=== PATIENT | male | born 1960 | race Two or more races ===

== ENCOUNTER → 2016-06-23 | Outpatient (CLI) | payer OTHER ==
[~2016-06-23] MED LIST: ASPI81CH43 PO; ATOR10TA PO; ATOR20TA50 PO; LISI-275 PO; MET25T PO
[2016-06-23 09:47] LABS: Urine Bilirubin Negative (Negative); Urine Blood Negative /uL (Negative); Urine Color Yellow (Yellow); Urine Glucose Normal (Normal); Urine Ketone Negative (Negative); Urine Nitrite Negative (Negative); Urine RBC <1 /hpf (0 - 3); Urine Urobilinogen Normal (Negative)
[2016-06-23 10:12] LABS: Albumin 3.9 g/dL (3.4-5.0); BUN/Creatinine Ratio 21.3; Bilirubin, Total 0.6 mg/dL (0.2-1.0); Calcium 8.8 mg/dL (8.5-10.1); Total Protein 7.3 g/dL (6.4-8.2)
[2016-06-23 10:41] LABS: Basophils # (auto) 0.1 uL; Basophils % (auto) 0.8 % (0.0-2.0); Eosinophils # (auto) 0.4 uL; Eosinophils % (auto) 5.7 % (0.0-7.0); Hematocrit 45.8 % (41.0-53.0); Hemoglobin 14.7 g/dL (13.5-17.5); Lymphocytes # (auto) 2.1 uL; Lymphocytes % (auto) 30.7 % (10.0-50.0); Mean Corpuscular Hemoglobin 30.7 pg (28.0-32.0); Mean Corpuscular Hgb Conc. 32.1 g/dL (32.0-36.0); Mean Corpuscular Volume 95.7 fL (80.0-100.0); Mean Platelet Volume 9.8 fL (7.4-10.4); Monocytes # (auto) 0.7 uL; Monocytes % (auto) 10.5 % (0.0-12.0); Neutrophils # (auto) 3.7 uL; Neutrophils % (auto) 52.3 % (37.0-80.0); Platelet Count (auto) 188 10^3/uL (140-450); Red Cell Distribution Width 11.5 % (11.6-16.0); SUSPECT VIEW TRANSMISSION
== END | disposition home or self-care (01) ==
LOC: LAB 07:53
DX: Z12.5 Encounter for screening for malignant neoplasm of prostate (principal); E11.40 Type 2 diabetes mellitus with diabetic neuropathy, unspecified; D64.9 Anemia, unspecified
CPT/HCPCS: 36415; 80053; 80061; 81001; 82043; 82270; 83036; 84153; 84443; 85025

== ENCOUNTER → 2016-09-19 | Outpatient (CLI) | payer OTHER ==
[2016-09-19 09:13] LABS: Urine RBC None Seen /hpf (0 - 3)
[2016-09-19 09:23] LABS: Basophils # (auto) 0 uL; Basophils % (auto) 0.4 % (0.0-2.0); Eosinophils # (auto) 0.1 uL; Eosinophils % (auto) 1.9 % (0.0-7.0); Hematocrit 39.8 % (41.0-53.0); Hemoglobin 13.1 g/dL (13.5-17.5); Lymphocytes # (auto) 1.9 uL; Lymphocytes % (auto) 24.5 % (10.0-50.0); Mean Corpuscular Hemoglobin 31.2 pg (28.0-32.0); Mean Corpuscular Volume 94.6 fL (80.0-100.0); Mean Platelet Volume 9.3 fL (7.4-10.4); Monocytes # (auto) 0.6 uL; Monocytes % (auto) 8.3 % (0.0-12.0); Neutrophils % (auto) 64.9 % (37.0-80.0); Platelet Count (auto) 193 10^3/uL (140-450); Red Cell Distribution Width 12.2 % (11.6-16.0); White Blood Cell 7.7 10^3/uL (4.4-10.8)
[2016-09-19 09:50] LABS: Urine Bilirubin Negative (Negative); Urine Blood Negative /uL (Negative); Urine Color Yellow (Yellow); Urine Glucose Normal (Normal); Urine Ketone Negative (Negative); Urine Mucus FEW (None Seen); Urine Nitrite Negative (Negative); Urine Urobilinogen Normal (Negative); Urine pH 5.5 (5.0-8.0)
[2016-09-19 09:53] LABS: Albumin 3.9 g/dL (3.4-5.0); BUN/Creatinine Ratio 21.4; Bilirubin, Total 0.6 mg/dL (0.2-1.0); Calcium 8.6 mg/dL (8.5-10.1); Potassium 3.7 mmol/L (3.5-5.1); Total Protein 7.2 g/dL (6.4-8.2)
== END | disposition home or self-care (01) ==
LOC: LAB 08:35
DX: E11.40 Type 2 diabetes mellitus with diabetic neuropathy, unspecified (principal)
CPT/HCPCS: 36415; 80053; 80061; 81001; 82043; 83036; 84443; 85025

== ENCOUNTER → 2016-11-29 | Outpatient (CLI) | payer OTHER ==
[2016-11-29 07:16] LABS: Basophils # (auto) 0 uL; Basophils % (auto) 0.5 % (0.0-2.0); CONDITION Y; Eosinophils # (auto) 0.2 uL; Eosinophils % (auto) 3.3 % (0.0-7.0); Hematocrit 40.6 % (41.0-53.0); Hemoglobin 13.7 g/dL (13.5-17.5); Lymphocytes # (auto) 2.2 uL; Lymphocytes % (auto) 33.9 % (10.0-50.0); Mean Corpuscular Hgb Conc. 33.7 g/dL (32.0-36.0); Mean Corpuscular Volume 95.2 fL (80.0-100.0); Mean Platelet Volume 9.4 fL (7.4-10.4); Monocytes # (auto) 0.6 uL; Monocytes % (auto) 9.3 % (0.0-12.0); Neutrophils # (auto) 3.4 uL; Platelet Count (auto) 213 10^3/uL (140-450); White Blood Cell 6.4 10^3/uL (4.4-10.8)
[2016-11-29 07:42] LABS: Albumin 3.6 g/dL (3.4-5.0); Bilirubin, Total 0.5 mg/dL (0.2-1.0); Calcium 8.6 mg/dL (8.5-10.1); Potassium 3.6 mmol/L (3.5-5.1); Total Protein 6.8 g/dL (6.4-8.2)
== END | disposition home or self-care (01) ==
LOC: LAB 06:53
PROVIDERS: ATTEND Family Medicine
DX: E11.40 Type 2 diabetes mellitus with diabetic neuropathy, unspecified (principal); D64.9 Anemia, unspecified; E78.5 Hyperlipidemia, unspecified
CPT/HCPCS: 36415; 80053; 80061; 82043; 82306; 82607; 83036; 84153; 84443; 85025

== ENCOUNTER 2024-08-19 09:50 | Inpatient (IN) | payer MEDICARE, MEDICAID ==
[~2024-08-19] VITALS: Ht 177.8 cm; Wt 88.3 kg
[~2024-08-19 09:50] MED LIST changes: +ATOR40TA52 PO; +EZET-10 PO; +INSU100I52 SC; +ONDA-188 PO; +SODI650T PO
--- NOTE | 2024-08-19 10:25 | ED.PDOC ---
History of Present Illness HPI Comments 64-year-old male came to the ER stating that he has been having chest pain shortness a breath for the past few days. Chest pain has been few days but shortness a breath has been for one week. No radiation of the chest pain. He does have bilateral lower extremity swelling wears a right boot for a wound on the right foot. History of having stents defibrillator aortic valve hypertension. Denies abdominal pain nausea vomiting. Chief Complaint: Lower Extremity Time Seen by MD: 10:03 Primary Care Provider: UNK Reviewed Notes: Nurses Notes, Medications, Allergies Allergies: Coded Allergies: NO KNOWN ALLERGIES (Unverified , 12/19/13) Home Meds Active Scripts Lisinopril (Lisinopril) 5 Mg Tab, 2.5 MG PO DAILY, #30 TAB Prov:SOURAV BENITEZ MD 04/27/16 Metoprolol Tartrate (Lopressor) 25 Mg Tb, 12.5 MG PO BID, #60 Prov:SOURAV BENITEZ MD 04/27/16 Aspirin (Asa) 81 Mg Ch, 81 MG PO DAILY, #30 Prov:SOURAV BENITEZ MD 04/27/16 Atorvastatin Calcium (ATORVASTATIN CALCIUM) 20 Mg Tab, 20 MG PO HS, #30 TAB Prov:SOURAV BENITEZ MD 04/27/16 Reported Medications Atorvastatin Calcium (Lipitor) 10 Mg Tab, PO HS, TAB Increase to 20mg q HS 04/29/16 Information Source: Patient Mode of Arrival: Ambulatory Severity: Moderate Timing: Days Duration: Since onset Past Medical History PAST MEDICAL HISTORY: CAD, DM, HTN Surgical History: Denies all surgeries Family History Family History: Unknown Social History Smoker: Non-Smoker Lives In: Home Constitutional: denies: chills, diaphoresis, fatigue, fever, malaise, sweats, weakness, others EENTM: denies: blurred vision, double vision, ear bleeding, ear discharge, ear drainage, ear pain, ear ringing, eye pain, eye redness, hearing loss, mouth pain, mouth swelling, nasal discharge, nose bleeding, nose congestion, nose pain, photophobia, tearing, throat pain, throat swelling, voice changes, others Respiratory: reports: shortness of breath; denies: cough, hemoptysis, orthopnea, SOB at rest, SOB with excertion, stridor, wheezing, others Cardiovascular: reports: chest pain; denies: dizzy spells, diaphoresis, Dyspnea on exertion, edema, irregular heart beat, left arm pain, lightheadedness, palpit ations, PND, syncope, others Gastrointestinal: denies: abdomen distended, abdominal pain, blood streaked b owels, constipated, diarrhea, dysphagia, difficulty swallowing, hematemesis, melena, nausea, poor appetite, poor fluid intake, rectal bleeding, rectal pain, vomiting, others Genitourinary: denies: burning, dysuria, flank pain, frequency, hematuria, incontinence, penile discharge, penile sore, pain, testicle pain, testicle swelling, urgency, others Neurological: denies: dizziness, fainting, headache, left sided numbness, left sided weakness, numbness, paresthesia, pre-existing deficit, right sided numbness, right sided weakness, seizure, speech problems, tingling, tremors, weakness, others Musculoskeletal: reports: joint swelling (Bilateral lower extremity); denies: back pain, gout, joint pain, muscle pain, muscle stiffness, neck pain, others Integumetry: denies: bruises, change in color, change in hair/nails, dryness, laceration, lesions, lumps, rash, wounds, others Allergic/Immunocompromised: denies: Difficulty Healing, Frequent Infections, Hives, Itching, others Hematologic/Lymphatic: denies: anemia, blood clots, easy bleeding, easy bruising, swollen glands, others Endocrine: denies: excessive hunger, excessive sweating, excessive thirst, excessive urination, flushing, intolerance to cold, intolerance to heat, u nexplained weight gain, unexplained weight loss, others Psychiatric: denies: anxiety, bipolar disorder, depression, hopeless, panic disorder, schizophrenia, sleepless, suicidal, others Physical Exam General Appearance: Moderate Distress HEENT: Normal ENT Inspection, Pharynx Normal, TMs Normal Neck: Full Range of Motion, Non-Tender, Normal, Normal Inspection Respiratory: Lungs Clear Cardiovascular: No Edema, No JVD, No Murmur, No Gallop, Normal Peripheral Pulses, Regular Rate/Rhythm Breast Exam: Deferred Gastrointestinal: No Organomegaly, Non Tender, No Pulsatile Mass, Normal Bowel Sounds, Soft Genitalia: Deferred Pelvic: Deferred Rectal: Deferred Extremities: Swelling (Bilateral lower extremity) Musculoskeletal : Apperance: Normal Neurologic: Alert Cerebellar Function: NOT DONE Reflexes: NOT DONE Skin: Dry, Normal Color, Warm Peripheral Pulses: 3+ Radial (R), 3+ Radial (L) Lymphatic: No Adenopathy Was a procedure done? Was a procedure done?: No Differential Dx Considerations may include: Anemia Electrolyte imbalance X-Ray, Labs, Meds, VS Vital Signs Date Time Temp Pulse Resp B/P (MAP) Pulse Ox O2 Delivery O2 Flow Rate FiO2 08/19/24 10:42 97.5 80 20 120/69 (86) 99 97.5 08/19/24 10:42 80 20 99 Room Air* 0 21 08/19/24 10:00 98.9 80 20 129/51 (77) 100 98.9 Lab Test 08/19/24 10:54 Range/Units White Blood Count 6.7 4.4-10.8 10^3/uL Red Blood Count 3.78 L 4.5-5.90 10^6/uL Hemoglobin 12.7 L 13.5-17.5 g/dL Hematocrit 39.1 L 41.0-53.0 % Mean Corpuscular Volume 103.6 H 80.0-100.0 fL Mean Corpuscular Hemoglobin 33.6 H 28.0-32.0 pg Mean Corpuscular Hemoglobin Concent 32.5 32.0-36.0 g/dL Red Cell Distribution Width 15.4 H 11.8-14.3 % Platelet Count 118 L 140-450 10^3/uL Mean Platelet Volume 10.6 6.9-10.8 fL Neutrophils (%) (Auto) 74.6 37.0-80.0 % Lymphocytes (%) (Auto) 8.2 L 10.0-50.0 % Monocytes (%) (Auto) 12.0 0.0-12.0 % Eosinophils (%) (Auto) 4.3 0.0-7.0 % Basophils (%) (Auto) 0.9 0.0-2.0 % Neutrophils # (Auto) 5.0 1.6-8.6 10 ^3/uL Lymphocytes # (Auto) 0.6 0.4-5.4 10 ^3/uL Monocytes # (Auto) 0.8 0-1.3 10 ^3/uL Eosinophils # (Auto) 0.3 0-0.8 10 ^3/uL Basophils # (Auto) 0.1 0-0.2 10 ^3/uL Nucleated Red Blood Cells 0.1 % Sodium Level 137 136-145 mmol/L Potassium Level 4.7 3.5-5.1 mmol/L Chloride Level 103 98-107 mmol/L Carbon Dioxide Level 26 20-31 mmol/L Anion Gap 8 5-15 Blood Urea Nitrogen 80 *H 9-23 mg/dL Creatinine 2.75 H 0.700-1.30 mg/dL Glomerular Filtration Rate Calc 25 >90 mL/min BUN/Creatinine Ratio 29.1 H 10.0-20.0 Serum Glucose 166 H 74-106 mg/dL Calcium Level 8.9 8.7-10.4 mg/dL Troponin I High Sensitivity 84 *H </=54 ng/L B-Type Natriuretic Peptide 3063.83 0-100 pg/mL Patient alert. Complaining of chest pain shortness a breath. On examination he does have bilateral lower extremity swelling. Has a right boot. Vitals stable. Continues to have chest pain. Was given aspirin. Was given nitro. Was given Lasix. Explained to the patient. EKG reviewed does not show any acute changes. Reviewed his previous visit. Explained to the patient. Continue cardiac monitoring. Time of 1ST Reevaluation: 10:23 Reevaluation 1ST: Unchanged Patient Education/Counseling: Diagnosis, Treatment, Prognosis Family Education/Counseling: No Family Present Departure 1 Departure Time of Disposition: 10:24 Impression: Primary Impression: Chest pain of unknown etiology Additional Impressions: Hypertension Qualified Codes: I10 - Essential (primary) hypertension CHF (congestive heart failure) Qualified Codes: I50.43 - Acute on chronic combined systolic (congestive) and diastolic (congestive) heart failure Demand ischemia Chronic kidney failure Qualified Codes: N18.9 - Chronic kidney disease, unspecified Disposition: ADMITTED INPATIENT Admit to: Med Surg Condition: Guarded Critical Care Note Critical Care Time?: Yes (90 min-critical care time only) Critical care comment: Monitoring chest pain shortness a breath risk factors Stability Stability form required: No Heart Score Heart Score: Heart Score Response (Comments) Value History Slightly Suspicious 0 EKG Normal 0 Age >65 2 Risk Factors >3 or Hx ASHD 2 Troponin Normal limit 0 Total 4 CAROLINA STOCK MD Aug 19, 2024 10:25
--- NOTE | 2024-08-19 10:41 | DVH ---
CHEST RADIOGRAPH Indication: sob Technique: Single frontal view of the chest was obtained COMPARISON: None FINDINGS: Lines and Tubes: Left chest AICD Lungs: Clear Pleura: No effusion. No pneumothorax. Cardiomediastinal contours: Cardiomegaly Bones: Unremarkable IMPRESSION: Cardiomegaly
[2024-08-19 10:42] VITALS: PULSE 80; RESP 20; O2SAT 99
[2024-08-19 11:13] LABS: Basophils # (auto) 0.1 10 ^3/uL (0-0.2); Basophils % (auto) 0.9 % (0.0-2.0); Eosinophils # (auto) 0.3 10 ^3/uL (0-0.8); Eosinophils % (auto) 4.3 % (0.0-7.0); Hematocrit 39.1 % (41.0-53.0); Hemoglobin 12.7 g/dL (13.5-17.5); Lymphocytes # (auto) 0.6 10 ^3/uL (0.4-5.4); Lymphocytes % (auto) 8.2 % (10.0-50.0); Mean Corpuscular Hemoglobin 33.6 pg (28.0-32.0); Mean Corpuscular Hgb Conc. 32.5 g/dL (32.0-36.0); Mean Corpuscular Volume 103.6 fL (80.0-100.0); Monocytes # (auto) 0.8 10 ^3/uL (0-1.3); Neutrophils % (auto) 74.6 % (37.0-80.0); Nucleated Red Blood Cells % 0.1 %; Platelet Count (auto) 118 10^3/uL (140-450); Red Blood Cells 3.78 10^6/uL (4.5-5.90); Red Cell Distribution Width 15.4 % (11.8-14.3); White Blood Cell 6.7 10^3/uL (4.4-10.8)
[2024-08-19 11:23] LABS: Chloride 103 mmol/L (98-107); Potassium 4.7 mmol/L (3.5-5.1); Sodium 137 mmol/L (136-145)
[2024-08-19 11:24] LABS: Anion Gap 8 (5-15); Calcium 8.9 mg/dL (8.7-10.4); Carbon Dioxide 26 mmol/L (20-31)
[2024-08-19 11:29] LABS: BUN/Creatinine Ratio 29.1 (10.0-20.0)
[2024-08-19 11:30] LABS: Glucose 166 mg/dL (74-106)
[2024-08-19 11:31] LABS: Blood Urea Nitrogen 80 mg/dL (9-23)
[2024-08-19] MEDS: ENOXAPARIN SOD 100 MG/1 ML SYRINGE SC ONE (12:01)
--- NOTE | 2024-08-19 13:08 | DVHHP2 ---
History of Present Illness Reason for Visit: Chest pain and shortness of the breath History of Present Illness 64-year-old male past medical history heart stent times do defibrillator placement eight over found hypertension CAD diabetes CHF COPD insulin pump chief complaint patient states he has been having chest pain and shortness of the breath has been for a week. He does state he had some edema to his lower extremity that is new. Patient states he has been taking Bumex but he knows that his swelling has not improved with the Bumex that was provided eat despite the increase in the dose. He states he was seen in his chim[facility] Dr. robles as scheduled. He states he has been taking his medications as scheduled. When evaluating patient's labs and imaging from the ED looks like Lovenox was given hemoglobin was 12.7 39.1 platelet count was 118, creatinine is 2.75 and 80 glucose was 161 troponin was positive x2 BNP was 3063.83, chest x-ray shows cardiomegaly. We will admit and ask for Cardiology consult Past Medical History See HPI above Past Surgical History See HPI above Family History Reviewed, non-contributory to the management of this case. Past Social History The patient lives at home, denies smoking, alcohol or illicit drugs abuse. Review of Systems Constitutional: No: Fever, Chills, Sweats, Weakness, Malaise, Other Eyes: No: Pain, Vision change, Conjunctivae inflammation, Eyelid inflammation, Other, Redness ENT: No: Ear pain, Ear discharge, Nose pain, Nose discharge, Nose congestion, Mouth pain, Mouth swelling, Throat pain, Throat swelling, Other Respiratory: Shortness of breath, SOB with excertion; No: Cough, Dry, Wheezing, Hemoptysis, Pleuritic Pain, Sputum, Wheezing, Other Cardiovascular: Chest Pain; No: Palpitations, Orthopnea, Paroxysmal Noc. Dyspnea, Edema, Lt Headedness, Other Gastrointestinal: No: Nausea, Vomiting, Abdominal Pain, Diarrhea, Constipation, Melena, Hematochezia, Other Genitourinary: No Dysuria, No Frequency, No Incontinence, No Hematuria, No Retention, No Other Musculoskeletal: No: other, neck pain, shoulder pain, arm pain, back pain, hand pain, leg pain, foot pain Skin: No: Rash, Lesions, Jaundice, Bruising, Other Neurological: No: Weakness, Numbness, Incoordination, Change in speech, Confusion, Seizures, Other Allergies: Coded Allergies: NO KNOWN ALLERGIES (Unverified , 12/19/13) Exam Vital Signs Vital Signs Date Time Temp Pulse Resp B/P (MAP) Pulse Ox O2 Delivery O2 Flow Rate FiO2 08/19/24 10:42 97.5 80 20 120/69 (86) 99 97.5 08/19/24 10:42 Room Air* 0 21 General Appearance: Alert, Oriented X3, Cooperative, mild distress HEENT: Atraumatic, PERRLA, EOMI, Mucous membr. moist/pink Respiratory: Other (Rales throughout) Cardiovascular: Regular rate, Normal S1, Normal S2, No murmurs Abdominal: Normal bowel sounds, Soft, No tenderness, No hepatospenomegaly, No masses Extremities: No clubbing, No cyanosis, No edema, Normal pulses, No tenderness/swelling Skin: No rashes, No breakdown, No significant lesion Neuro: Other (Wheelchair due to weakness) Psych/Mental Status: Mental status NL, Mood NL Labs/Xrays Chest x-ray shows cardiomegaly I reviewed labs, imaging CT scan abdomen pelvis, EKG and all diagnostic studies on this patient from ED records and the medical chart Labs Test 08/19/24 10:54 Range/Units White Blood Count 6.7 4.4-10.8 10^3/uL Red Blood Count 3.78 L 4.5-5.90 10^6/uL Hemoglobin 12.7 L 13.5-17.5 g/dL Hematocrit 39.1 L 41.0-53.0 % Mean Corpuscular Volume 103.6 H 80.0-100.0 fL Mean Corpuscular Hemoglobin 33.6 H 28.0-32.0 pg Mean Corpuscular Hemoglobin Concent 32.5 32.0-36.0 g/dL Red Cell Distribution Width 15.4 H 11.8-14.3 % Platelet Count 118 L 140-450 10^3/uL Mean Platelet Volume 10.6 6.9-10.8 fL Neutrophils (%) (Auto) 74.6 37.0-80.0 % Lymphocytes (%) (Auto) 8.2 L 10.0-50.0 % Monocytes (%) (Auto) 12.0 0.0-12.0 % Eosinophils (%) (Auto) 4.3 0.0-7.0 % Basophils (%) (Auto) 0.9 0.0-2.0 % Neutrophils # (Auto) 5.0 1.6-8.6 10 ^3/uL Lymphocytes # (Auto) 0.6 0.4-5.4 10 ^3/uL Monocytes # (Auto) 0.8 0-1.3 10 ^3/uL Eosinophils # (Auto) 0.3 0-0.8 10 ^3/uL Basophils # (Auto) 0.1 0-0.2 10 ^3/uL Nucleated Red Blood Cells 0.1 % Sodium Level 137 136-145 mmol/L Potassium Level 4.7 3.5-5.1 mmol/L Chloride Level 103 98-107 mmol/L Carbon Dioxide Level 26 20-31 mmol/L Anion Gap 8 5-15 Blood Urea Nitrogen 80 *H 9-23 mg/dL Creatinine 2.75 H 0.700-1.30 mg/dL Glomerular Filtration Rate Calc 25 >90 mL/min BUN/Creatinine Ratio 29.1 H 10.0-20.0 Serum Glucose 166 H 74-106 mg/dL Calcium Level 8.9 8.7-10.4 mg/dL Troponin I High Sensitivity 84 *H </=54 ng/L B-Type Natriuretic Peptide 3063.83 0-100 pg/mL Assessment/Plan Assessment/Plan acute chest pain r/o nstemi ekg no stemi ordered Cards consult pending eval and recs ordered lovenox ordered metoprolol asa atorvastatin ordered Echocardiogram follow-up results last echo completed 2015 ef 30% ordered morphine as needed for pain, ordered nitro prn acute on chronic diastolic systolic heart failure bnp elevated ordered strict i/o's ordered bumex ordered echo fu results acute on chronic elevation in trop likely ak from heart failure strict i/o's ordered urine sodium and crea to check fena acute elevation in crea likely from heart failure fluid overload ordered bumex strict i/o' renal consult dr tinoco if worsening pt renal doctor acute thrombocytopenia monitor while getting Lovenox chronic cardiomegaly found on cxr cards consult chronic problems uncontrolled type 2 dm ISS and hemoglobin a1c htn cad defib heart stents x2 fen/ppx diet hl scd lovenox no gi ppx since no hx of gerds or gi bleed plan admit to tele cards consult fu recs Plan discussed with: Patient Date of Service: Aug 19, 2024 Billing Provider: SERGIO LIRIANO DNP Common Visit Codes: [id number] INP/OBS CARE (HIGH) SERGIO LIRIANO DNP Aug 19, 2024 13:08
[2024-08-19 13:29] LABS: Urine Bacteria None Seen /hpf (None Seen)
[2024-08-19 13:39] LABS: Urine Blood Negative /uL (Negative); Urine Clarity Clear (Clear); Urine Color Light-Yellow (Yellow); Urine Protein, UAD 1+ (Negative); Urine Specific Gravity 1.017 (1.001-1.035); Urine Squamous Epithelial Cell None Seen /hpf (<5); Urine Urobilinogen 2 mg/dL (Negative); Urine WBC 3 /HPF (0-3); Urine pH 6.5 (5.0-9.0)
[2024-08-19] MEDS ORDERED: NITROGLYCERIN 0.4 MG SL TAB SL PRN (14:45)
[2024-08-19] MEDS ORDERED: MORPHINE SULFATE INJ 2 MG/ml SYRG IV PRN (14:45)
--- NOTE | 2024-08-19 16:54 | DVHINCON2 ---
Date of service: Aug 19, 2024 History of Present Illness HPI Patient is a 64-year-old gentleman who presented to the hospital with 1 week of worsening shortness of breath. He did have some left shoulder pain for few days also. It is of note that the patient is known to have degenerative disc disease of the neck for which is referred to orthopedic surgery for its management. Patient is known to have systolic heart failure. Patient mentions that his weight has increased around 20 lb in the past few weeks. Cardiology is involved for cardiac aspects of care. Patient is known to our practice from before. Does have history of systolic heart failure and also history of valvular heart disease and status post TAVR in 2022. Does also have CKD for which follows with Nephrology. Home Meds Active Scripts Lisinopril (Lisinopril) 5 Mg Tab, 2.5 MG PO DAILY, #30 TAB Prov:SOURAV BENITEZ MD 04/27/16 Metoprolol Tartrate (Lopressor) 25 Mg Tb, 12.5 MG PO BID, #60 Prov:SOURAV BENITEZ MD 04/27/16 Aspirin (Asa) 81 Mg Ch, 81 MG PO DAILY, #30 Prov:SOURAV BENITEZ MD 04/27/16 Atorvastatin Calcium (ATORVASTATIN CALCIUM) 20 Mg Tab, 20 MG PO HS, #30 TAB Prov:SOURAV BENITEZ MD 04/27/16 Reported Medications Atorvastatin Calcium (Lipitor) 10 Mg Tab, PO HS, TAB Increase to 20mg q HS 04/29/16 Past Medical History Others Past medical history includes coronary artery disease, status post PCI, systolic heart failure, status post ICD ([employer]) implantation, valvular heart disease, status post TAVR, [id number] TR, diabetes mellitus, pulmonary hypertension (type 2), degenerative disc disease, hypertension, hyperlipidemia, CKD, DJD, abnormal LFT and history of carpal tunnel surgery. Family History: No pertinent Hx Patient Family History: Cancer G8 MOTHER Family history: Diabetes mellitus G8 MOTHER Stroke G8 MOTHER Smoker: No Hx (Negative) Alocohol: None Review of Systems Constitutional: Weakness Ears, Nose, & Throat: No symptom reported Eyes: No symptom reported Pulmonary/Respiratory: Dyspnea, Pleuritic Chest Pain Cardiovascular: Orthopnea, Paroxysmal Noc. Dyspnea Gastrointestinal: Nausea All Other Systems Fourteen point review of system was performed. Relevant findings as per above and as per HPI. Otherwise negative H&P Exam Vital Signs Vital Signs Date Time Temp Pulse Resp B/P (MAP) Pulse Ox O2 Delivery O2 Flow Rate FiO2 08/19/24 15:45 97.0 72 18 131/64 (86) 97 97.0 08/19/24 10:42 Room Air* 0 21 General Appeara: Well developed, Mild distress Head Exam: Normal inspection Eye Exam: bilateral eye PERRL Mouth: Normal Inspection Pulmonary/Respiratory: Rales Cardiovascular/Chest: Normal inspection, Edema, Regular rate, Systolic murmur Peripheral Pulses: 2+ carotid (R), 2+ carotid (L), 2+ femoral (R), 2+ femoral (L) Abdominal Exam: Normal bowel sounds, Soft, Other (Distended.) Neuro/Mental St: Alert, Oriented Appearance: Appropriate appearance Eye contact/ Speech: Cooperative Labs/Xrays Labs Test 08/19/24 10:54 08/19/24 10:40 Range/Units White Blood Count 6.7 4.4-10.8 10^3/uL Red Blood Count 3.78 L 4.5-5.90 10^6/uL Hemoglobin 12.7 L 13.5-17.5 g/dL Hematocrit 39.1 L 41.0-53.0 % Mean Corpuscular Volume 103.6 H 80.0-100.0 fL Mean Corpuscular Hemoglobin 33.6 H 28.0-32.0 pg Mean Corpuscular Hemoglobin Concent 32.5 32.0-36.0 g/dL Red Cell Distribution Width 15.4 H 11.8-14.3 % Platelet Count 118 L 140-450 10^3/uL Mean Platelet Volume 10.6 6.9-10.8 fL Neutrophils (%) (Auto) 74.6 37.0-80.0 % Lymphocytes (%) (Auto) 8.2 L 10.0-50.0 % Monocytes (%) (Auto) 12.0 0.0-12.0 % Eosinophils (%) (Auto) 4.3 0.0-7.0 % Basophils (%) (Auto) 0.9 0.0-2.0 % Neutrophils # (Auto) 5.0 1.6-8.6 10 ^3/uL Lymphocytes # (Auto) 0.6 0.4-5.4 10 ^3/uL Monocytes # (Auto) 0.8 0-1.3 10 ^3/uL Eosinophils # (Auto) 0.3 0-0.8 10 ^3/uL Basophils # (Auto) 0.1 0-0.2 10 ^3/uL Nucleated Red Blood Cells 0.1 % Sodium Level 137 136-145 mmol/L Potassium Level 4.7 3.5-5.1 mmol/L Chloride Level 103 98-107 mmol/L Carbon Dioxide Level 26 20-31 mmol/L Anion Gap 8 5-15 Blood Urea Nitrogen 80 *H 9-23 mg/dL Creatinine 2.75 H 0.700-1.30 mg/dL Glomerular Filtration Rate Calc 25 >90 mL/min BUN/Creatinine Ratio 29.1 H 10.0-20.0 Serum Glucose 166 H 74-106 mg/dL Calcium Level 8.9 8.7-10.4 mg/dL Magnesium Level 3.4 H 1.6-2.6 mg/dL Troponin I High Sensitivity 84 *H </=54 ng/L B-Type Natriuretic Peptide 3063.83 0-100 pg/mL Thyroid Stimulating Hormone (TSH) 5.49 H 0.55-4.78 uIU/mL Urine Color Light-yellow Yellow Urine Clarity Clear Clear Urine pH 6.5 5.0-9.0 Urine Specific [place] 1.017 1.001-1.035 Urine Protein 1+ H Negative Urine Ketones Negative Negative Urine Blood Negative Negative /uL Urine Nitrite 2+ H Negative Urine Bilirubin Negative Negative Urine Urobilinogen 2 H Negative mg/dL Urine Leukocyte Esterase Trace Negative /uL Urine RBC 2 0 - 3 /hpf Urine Microscopic WBC 3 0-3 /HPF Urine Squamous Epithelial Cells None seen <5 /hpf Urine Bacteria None seen None Seen /hpf Urine Glucose 4+ H Normal mg/dL Assessment/Plan Plan Patient is a 64-year-old gentleman who presented to the hospital with 1 week of worsening shortness of breath. He did have some left shoulder pain for few days also. It is of note that the patient is known to have degenerative disc disease of the neck for which is referred to orthopedic surgery for its management. Patient is known to have systolic heart failure. Patient mentions that his weight has increased around 20 lb in the past few weeks. Cardiology is involved for cardiac aspects of care. Patient is known to our practice from before. Does have history of systolic heart failure and also history of valvular heart disease and status post TAVR in 2022. Does also have CKD for which follows with Nephrology. Does go to vascular. Mentions that he has an ulcer in the right heel. Positive JVD. Mucosa is pink and wet. No carotid bruit. Lung examination reveals crackles in the lower lungs. Not using accessory muscles of breathing. Cardiac: Regular, no thrill. Systolic murmur 3/6 in the apex is heard. History gallop is heard. Abdomen is distended. Bowel sound is positive. There is no tenderness. Questionable hepatomegaly is positive. Extremities reveal 3+ edema bilaterally. Could not feel pulses bilaterally. Past medical history includes coronary artery disease, status post PCI, systolic heart failure, status post ICD ([employer]) implantation, valvular heart disease, status post TAVR, [id number] TR, diabetes mellitus, pulmonary hypertension (type 2), degenerative disc disease, hypertension, hyperlipidemia, CKD, DJD, abnormal LFT and history of carpal tunnel surgery. Left heart catheterization of October 25, 2022 (performed in [facility]) revealed patent stent in LAD/diagonal/LCX/RCA. OM1 was a small to medium-sized vessel with 90% lesion. RPDA was a small vessel with 60% lesion. To be managed medically Echocardiogram of July 18, 2024 (performed in the office) revealed moderate 4 chamber dilatation, LVEF of less than 20%, increased EDP, bioprosthetic valve in aortic position working properly, [id number] mitral regurgitation, odpwuuca-[id number]-hvertq tricuspid regurgitation and right ventricular systolic pressure of 48 mm Hg Hemoglobin: 12.7 Platelet: 118 Creatinine: 2.75 Potassium: 4.7 TSH: 5.49 Troponin (high sensitive): 84 BNP: 3063.83 Chest x-ray revealed: IMPRESSION: Cardiomegaly Tele reveals sinus rhythm Patient is a 64-year-old gentleman with known history of systolic heart failure, valvular heart disease, type 2 pulmonary hypertension who presented with wo rsening shortness of breath and gaining weight. Presentation is in favor of acute on chronic systolic heart failure. Did complain of atypical left shoulder/neck pain. Is known to have degenerative disc disease in the neck. Acute coronary syndrome is less likely. Most likely, mild increase in troponin reflects demand physiology in the patient with systolic heart failure. Acute on chronic systolic heart failure Valvular heart disease Status post TAVR Dyavgyox-vf-htulxl tricuspid regurgitation Pulmonary hypertension, type 2 CKD Hypertension Hyperlipidemia Diabetes mellitus Status post ICD ([employer]) implantation PAD Cardiac suggestion for management: Manage on telemetry IV diuresis (Bumex) Follow-up electrolytes and kidney function tests and correct abnormalities. Keep potassium above 4 and magnesium above 2 Request for D-dimer Serial troponin Continue aspirin at this Prophylactic Lovenox at this point Request for echocardiogram Request for arterial and venous Doppler of lower extremities Nephrology evaluation is suggested Further evaluation and management depends on the above and clinical course Thank you for consultation A total of 75 minutes was spent reviewing the patient record, examining the patient, making a diagnostic and therapeutic plan, discussing this plan with medical personnel, following up on diagnostic studies and following the patient for clinical stability excluding any and all procedures. At least 50% of this time was spent in direct, mjme-tt-[id number] contact. Thank you for allowing me to participate in this patient's care. Further recommendations will depend on patient's clinical course. Please do not hesitate to contact me if you have any questions or concerns. This medical document was created using electronic medical record system with [employer] computerized dictation system. Although this document has been carefully reviewed, there may still be some phonetic and typographical errors. These areas are purely typographical due to the imperfection of the software programs, and do not reflect any compromise in the patient's medical care. Plan discussed with: Patient, Other (nurse) GLADIS SAINI MD Aug 19, 2024 16:54
[2024-08-19] MEDS ORDERED: BUMETANIDE 1mg/4ml VIAL (0.25mg/ml) IV SCH (18:00)
[2024-08-19] MEDS: BUMETANIDE 2.5mg/10ml (0.25 mg/ml) INJ IV SCH (19:50)
[2024-08-19 20:00] VITALS: BP 140/71; PULSE 71; RESP 18; TEMP 97.9; O2SAT 98
--- NOTE | 2024-08-19 20:34 | DVH ---
Bilateral Lower Extremity Arterial Duplex Clinical History: Pain Comparison: None Technique: Duplex Doppler evaluation including color Doppler and spectral/pulsed waveform analysis of the lower extremity arteries was performed. Findings: RIGHT: Peak systolic velocities are less than 150 cm/sec. Dorsalis pedis is not visualized. The waveforms are triphasic with diastolic flow. LEFT: Peak systolic velocities are less than 150 cm/sec. Dorsalis pedis is not visualized. The waveforms are triphasic with diastolic flow. IMPRESSION: No hemodynamically significant stenosis based on peak systolic velocity criteria. Bilateral dorsalis pedis arteries are not visualized due to bandages. REFERENCE VALUES, [facility] ([facility]) vascular Imaging Lab Criteria: Peak systolic velocity ranges (in cm/sec) are as follows: <150 cm/s - <20 % stenosis 150-200 cm/s - 20-49% stenosis 200-300 cm/s - 50-75% stenosis >300 cm/s -> 75% stenosis
--- NOTE | 2024-08-19 20:34 | DVH ---
Bilateral lower extremity venous duplex Clinical History: MD TRIPP REQUEST Comparison: None Technique: Duplex Doppler evaluation of the deep venous systems of both lower extremities from the common femora l veins to the popliteal veins including color Doppler and spectral/pulsed waveform analysis was perf ormed. Findings: RIGHT SIDE: The common femoral vein demonstrates appropriate compressibility and waveform variability. There is compressibility/patency of the great saphenous vein at the proximal thigh. The femoral vein demonstrates appropriate compressibility and waveform variability. The deep femoral vein demonstrates appropriate compressibility and waveform variability. The popliteal vein demonstrates appropriate compressibility and waveform variability. There is normal compressibility at the tibioperoneal trunk. LEFT SIDE: The common femoral vein demonstrates appropriate compressibility and waveform variability. There is compressibility/patency of the great saphenous vein at the proximal thigh. The femoral vein demonstrates appropriate compressibility and waveform variability. The deep femoral vein demonstrates appropriate compressibility and waveform variability. The popliteal vein demonstrates appropriate compressibility and waveform variability. There is normal compressibility at the tibioperoneal trunk. Impression: No evidence of right or left femoropopliteal venous thrombosis.
[2024-08-19] MEDS ORDERED: BUMETANIDE 2.5mg/10ml (0.25 mg/ml) INJ IV ONE (22:00)
[2024-08-19] MEDS ORDERED: METOPROLOL TARTRATE 25 MG TAB PO SCH (22:00)
[2024-08-19 22:09] VITALS: PULSE 81; RESP 17; O2SAT 98
[2024-08-19 22:10] VITALS: BP 140/71; PULSE 81; RESP 17; TEMP 98; O2SAT 98
[2024-08-19] MEDS: ATORVASTATIN 20 MG TAB PO SCH (22:20)
[2024-08-19] MEDS ORDERED: METO5TAB5 PO (23:23)
[2024-08-19] MEDS ORDERED: ALLO100T PO (23:23)
[2024-08-19] MEDS ORDERED: SACU1TAB PO (23:23)
[2024-08-19] MEDS ORDERED: CARV6.2551 PO (23:23)
[2024-08-19] MEDS ORDERED: CALC0.25 PO (23:23)
[2024-08-19] MEDS ORDERED: FINE10TA PO (23:23)
[2024-08-19] MEDS ORDERED: BUME0.5T4 PO (23:23)
[2024-08-19] MEDS ORDERED: DAPA1TAB4 PO (23:23)
[2024-08-19] MEDS ORDERED: ESZO2TAB24 PO (23:26)
[2024-08-20] VITALS (8 sets, daily range): BP systolic 108–150; BP diastolic 64–79; PULSE 74–83; RESP 18–20; TEMP 97.4–98.5; O2SAT 94–100
[2024-08-20] MEDS: HYDROcodone-ACET 5/325MG TAB PO ONE (05:09)
[2024-08-20 06:20] LABS: Basophils # (auto) 0.1 10 ^3/uL (0-0.2); Eosinophils # (auto) 0.3 10 ^3/uL (0-0.8); Eosinophils % (auto) 3.6 % (0.0-7.0); Hemoglobin 12.2 g/dL (13.5-17.5); Lymphocytes # (auto) 0.6 10 ^3/uL (0.4-5.4); Monocytes # (auto) 0.9 10 ^3/uL (0-1.3); Nucleated Red Blood Cells % 0.1 %; Red Cell Distribution Width 14.9 % (11.8-14.3)
[2024-08-20 06:25] LABS: Lymphocytes % (auto) 9.2 % (10.0-50.0); Mean Corpuscular Hemoglobin 34.4 pg (28.0-32.0); Mean Corpuscular Hgb Conc. 33.1 g/dL (32.0-36.0); Monocytes % (auto) 12.6 % (0.0-12.0); Neutrophils # (auto) 5.2 10 ^3/uL (1.6-8.6); Neutrophils % (auto) 73.6 % (37.0-80.0); Platelet Count (auto) 113 10^3/uL (140-450); Red Blood Cells 3.56 10^6/uL (4.5-5.90)
[2024-08-20 06:45] LABS: Alanine Aminotransferase 32 U/L (7-40); Anion Gap 11 (5-15); BUN/Creatinine Ratio 31.5 (10.0-20.0); Calcium 9.3 mg/dL (8.7-10.4); Carbon Dioxide 22 mmol/L (20-31); Chloride 105 mmol/L (98-107); Sodium 138 mmol/L (136-145); Total Protein 7.2 g/dL (5.7-8.2)
[2024-08-20 06:46] LABS: Albumin 4.2 g/dL (3.2-4.8); Aspartate Aminotransferase 30 U/L (13-40)
[2024-08-20 06:53] LABS: Alkaline Phosphatase 178 U/L (46-116); Bilirubin, Total 1.3 mg/dL (0.2-1.0); Glucose 143 mg/dL (74-106)
[2024-08-20 06:55] LABS: Blood Urea Nitrogen 80 mg/dL (9-23)
[2024-08-20 07:10] LABS: Triglycerides 91 mg/dL (< 150)
[2024-08-20 07:11] LABS: LDL Cholesterol 66 mg/dL (< 100)
[2024-08-20 07:12] LABS: Cholesterol 152 mg/dL (< 200)
[2024-08-20 07:17] LABS: HDL Cholesterol 64 mg/dL (40-59)
--- NOTE | 2024-08-20 07:28 | DVHPN2 ---
Progress Note - Dictate Date Seen: Aug 20, 2024 Medical Necessity Reason Pt with a Central, PICC or Fol: No vital signs Vital Sign Date Time Temp Pulse Resp B/P (MAP) Pulse Ox O2 Delivery O2 Flow Rate FiO2 08/20/24 05:48 150/64 08/20/24 05:00 97.6 80 18 99 97.6 08/19/24 22:09 Room Air* 0 21 Total Intake and Output 08/19/24 08/19/24 08/20/24 15:00 23:00 07:00 Intake Total 400 ml Output Total 125 ml Balance 275 ml medications Current Medications Medications Dose Ordered Sig/Jesus Route Start Time Stop Time Status Last Admin Dose Admin Aspirin 81 mg DAILY PO 08/20/24 10:00 Atorvastatin Calcium 20 mg HS PO 08/19/24 22:00 08/19/24 22:20 20 MG Lisinopril 2.5 mg DAILY PO 08/20/24 10:00 Future Hold Metoprolol Tartrate 12.5 mg BID PO 08/19/24 22:00 Hold Enoxaparin Sodium 40 mg DAILY SC 08/20/24 10:00 Nitroglycerin 0.4 mg Q5MINP PRN SL 08/19/24 14:45 Morphine Sulfate 2 mg Q30M PRN IV 08/19/24 14:45 Bumetanide 2 mg BIDD IV 08/19/24 18:00 08/20/24 05:48 2 MG laboratory and microbiology Laboratory Tests 08/20/24 04:10 Test 08/20/24 04:10 Range/Units Serum Glucose 143 H 74-106 mg/dL Assessment/Plan Patient is a 64-year-old gentleman who presented to the hospital with 1 week of worsening shortness of breath. He did have some left shoulder pain for few days also. It is of note that the patient is known to have degenerative disc disease of the neck for which is referred to orthopedic surgery for its management. Patient is known to have systolic heart failure. Patient mentions that his weight has increased around 20 lb in the past few weeks. Cardiology is involved for cardiac aspects of care. Patient is known to our practice from before. Does have history of systolic heart failure and also history of valvular heart disease and status post TAVR in 2022. Does also have CKD for which follows with Nephrology. Does go to vascular. Mentions that he has an ulcer in the right heel. Positive JVD. Mucosa is pink and wet. No carotid bruit. Lung examination reveals crackles in the lower lungs. Not using accessory muscles of breathing. Cardiac: Regular, no thrill. Systolic murmur 3/6 in the apex is heard. History gallop is heard. Abdomen is distended. Bowel sound is positive. There is no tenderness. Questionable hepatomegaly is positive. Extremities reveal 3+ edema bilaterally. Could not feel pulses bilaterally. Past medical history includes coronary artery disease, status post PCI, systolic heart failure, status post ICD ([employer]) implantation, valvular heart disease, status post TAVR, [id number] TR, diabetes mellitus, pulmonary hypertension (type 2), degenerative disc disease, hypertension, hyperlipidemia, CKD, DJD, abnormal LFT and history of carpal tunnel surgery. Left heart catheterization of October 25, 2022 (performed in [facility]) revealed patent stent in LAD/diagonal/LCX/RCA. OM1 was a small to medium-sized vessel with 90% lesion. RPDA was a small vessel with 60% lesion. To be managed medically Echocardiogram of July 18, 2024 (performed in the office) revealed moderate 4 chamber dilatation, LVEF of less than 20%, increased EDP, bioprosthetic valve in aortic position working properly, hdul-fy-frdzvyvm mitral regurgitation, vavzrwbv-ak-sklzem tricuspid regurgitation and right ventricular systolic pressure of 48 mm Hg Hemoglobin: 12.7 - 12.2 Platelet: 118 - 113 D-dimer: 0.56 Creatinine: 2.75 - 2.54 Potassium: 4.7 - 4.0 TSH: 5.49 Troponin (high sensitive): 84 BNP: 3063.83 Chest x-ray revealed: IMPRESSION: Cardiomegaly Arterial duplex of lower ext revealed: IMPRESSION: No hemodynamically significant stenosis based on peak systolic velocity criteria. Bilateral dorsalis pedis arteries are not visualized due to bandages. Venous duplex of lower ext revealed: Impression: No evidence of right or left femoropopliteal venous thrombosis. Tele reveals sinus rhythm Patient is a 64-year-old gentleman with known history of systolic heart failure, valvular heart disease, type 2 pulmonary hypertension who presented with worsening shortness of breath and gaining weight. Presentation is in favor of acute on chronic systolic heart failure. Did complain of atypical left shoulder/neck pain. Is known to have degenerative disc disease in the neck. Acute coronary syndrome is less likely. Most likely, mild increase in troponin reflects demand physiology in the patient with systolic heart failure. Acute on chronic systolic heart failure Valvular heart disease Status post TAVR Dzvixmwa-sv-tpwpsk tricuspid regurgitation Pulmonary hypertension, type 2 CKD Hypertension Hyperlipidemia Diabetes mellitus Status post ICD ([employer]) implantation PAD Cardiac suggestion for management: Manage on telemetry IV diuresis (Bumex) Follow-up electrolytes and kidney function tests and correct abnormalities. Keep potassium above 4 and magnesium above 2 Serial troponin Request for Echocardiogram V/Q scan Nephrology evaluation is suggested Further evaluation and management depends on the above and clinical course A total of 55 minutes was spent reviewing the patient record, examining the patient, making a diagnostic and therapeutic plan, discussing this plan with medical personnel, following up on diagnostic studies and following the patient for clinical stability excluding any and all procedures. At least 50% of this time was spent in direct, [id number] contact. Thank you for allowing me to participate in this patient's care. Further recommendations will depend on patient's clinical course. Please do not hesitate to contact me if you have any questions or concerns. This medical document was created using electronic medical record system with [email or web address] computerized dictation system. Although this document has been carefully reviewed, there may still be some phonetic and typographical errors. These areas are purely typographical due to the imperfection of the software programs, and do not reflect any compromise in the patient's medical care. Plan discussed with: Patient, Other (nurse) GLADIS SAINI MD Aug 20, 2024 07:28
[2024-08-20] MEDS: ASPirin 81 mg TAB PO SCH (09:44)
[2024-08-20] MEDS: ENOXAPARIN SOD 40 MG/0.4 ML SYRINGE SC SCH (09:46)
[2024-08-20] MEDS ORDERED: LISINOPRIL 5 MG TAB PO SCH (10:00)
--- NOTE | 2024-08-20 10:29 | DVH ---
NUCLEAR MEDICINE VENTILATION/PERFUSION LUNG SCAN. INDICATION: Rule out PE COMPARISON: None TECHNIQUE: Following intravenous demonstration of for millicuries of technetium 99m MAA, and inhala tion of 8 mCi of Xe 133 scintigrams were obtained in multiple projections of the lungs. FINDINGS: There is normal uptake of radionuclide on both the ventilation and perfusion portions of the examinat ion. No mismatched perfusion defects are demonstrated. Uptake is normally homogeneous. IMPRESSION: Low probability for PE.
--- NOTE | 2024-08-20 18:11 | DVHINCON2 ---
DATE OF CONSULTATION: 08/20/2024 REASON FOR CONSULTATION: Kidney failure. HISTORY OF PRESENT ILLNESS: The patient is a 64-year-old gentleman who is a patient of Dr. Curtis, his athletic team physician, who last saw him at the office apparently 2 weeks ago. His baseline creatinine is 2.2. The patient is known to have chronic kidney disease, diabetes, hypertension, and came to the hospital complaining of new onset of shortness of breath and some chest pain, worsening over the last five to seven days, he has been admitted for cardiology workup. I am being consulted to evaluate his renal function. He denies any other symptoms at this point, he says he has been taking Bumex, but the edema of the lower extremities was not improving despite the recently increased dose. PAST MEDICAL HISTORY: As stated above, significant for longstanding hypertension, diabetes, chronic kidney disease, apparently stage 3B. He has history of coronary artery disease, has had a cardiac catheterization several times. He has had stents of the heart. He also has a defibrillator. He has history of COPD, CHF. MEDICATIONS: At home include enoxaparin, lisinopril, aspirin, bumetanide, metoprolol, atorvastatin, and nitroglycerin. SOCIAL HISTORY: He denies smoking cigarettes or drinking alcohol. FAMILY HISTORY: Noncontributory. PHYSICAL EXAMINATION: VITAL SIGNS: Blood pressure is 143/79, heart rate 76, respirations 18, temperature 97.4. GENERAL: The patient is an adult gentleman who appears to be acutely ill, in no acute distress, alert and oriented x3. HEENT: Unremarkable. NECK: There is 1 cm jugular venous distention. LUNGS: Show a few crackles at the bases. CARDIOVASCULAR: Shows a regular rate with an S4 gallop, 2/6 systolic murmur. ABDOMEN: Soft, nontender. No organomegalies, no ascites. EXTREMITIES: Show no clubbing, cyanosis. There is 1+ edema bilaterally. NEUROLOGIC: Nonfocal. LABORATORY DATA: Sodium 137, potassium 4.7, bicarbonate 26, BUN 80, creatinine 2.7, glucose 166. Troponin is 84. BNP 3063. Hemoglobin 12.2. Urinalysis showed 1+ proteinuria, 2 red blood cells, trace white blood cells. ASSESSMENT AND PLAN: * Acute kidney injury, which is most likely hemodynamically mediated due to decompensation of congestive heart failure and recent diuresis. * Underlying chronic kidney disease due to diabetic nephropathy, stage 3B. * Coronary artery disease with acute cardiac ischemia and decompensation of congestive heart failure. * Uncontrolled diabetes. * Hypertension. * Anemia of kidney disease, mild. Hemoglobin is acceptable. The plan is to diurese the patient carefully with intravenous loop diuretic. I would recommend bumetanide 2 mg IV every 8 hours and also add metolazone 5 mg orally once daily. He may need the addition of his spironolactone to rule out aldosterone activity after hospital discharge. We should not use angiotensin receptor blockers or JULEE inhibitors while he is being diuresed at least initially. We will monitor his intake and output closely. Avoid the use of other nephrotoxic medications. Dr. Curtis, who knows the patient very well, will come to see him in the morning. Thank you for the consultation. MD BRITTANY Alexander/[facility] TID: [id number] RECEIPT: [id number]
[2024-08-20] MEDS: ONDANSETRON HCL 4 MG/2 ML VIAL IV PRN (18:20)
[2024-08-20] MEDS: ATORVASTATIN 20 MG TAB PO SCH (21:37)
[2024-08-20] MEDS: CARVEDILOL 3.125 MG TAB PO SCH (21:39)
--- NOTE | 2024-08-20 21:42 | DVHPNRES ---
Progress Note Date Seen: Aug 20, 2024 Resident Creating Document: AVILA BOYER RESIDENT Medical Necessity Reason Pt with a Central, PICC or Fol: No Subjective Review of Systems Patient is a 64-year-old male with a past medical history as described below presented to the ED with a chief complaint of worsening shortness of breath since the last 1 week. Patient has been compliant with the medication but in the last few days he had worsening shortness of breath NYHA class 2 associated with orthopnea. He mentioned that his weight increased around 20 lb in the last weeks. Patient denied feeling any chest pain, palpitations or dizziness. Patient has a ulcer with the right heel which is healing. Past medical history: coronary artery disease s/p PCI with a 5 GI, heart failure with reduced ejection fraction, valvular heart disease s/p TAVR, CKD, insulin-dependent diabetes mellitus, degenerative disc, hypertension, hyperlipidemia Past surgical history: PCI with 5 GI, TAVR with bioprosthetic valve Social history: Patient lives with the family and denies smoking, alcohol, drug use Home medications: Carvedilol 6.25 mg b.i.d., Farxiga 10 mg, finrenone 10 mg, Bumex 0.5 mg b.i.d., Entresto 09/14/2025 1 tab b.i.d. Review of systems Patient is seen and examined at bedside Denied shortness of breath while on oxygen at 2 liter/minute, no chest pain or palpitations or dizziness or syncope Reports nausea for which ondansetron was given Objective vital signs Vital Sign Date Time Temp Pulse Resp B/P (MAP) Pulse Ox O2 Delivery O2 Flow Rate FiO2 08/20/24 18:24 143/79 08/20/24 17:00 97.6 74 20 97 97.6 08/20/24 08:00 Room Air* 0 21 Total Intake and Output 08/19/24 08/19/24 08/20/24 15:00 23:00 07:00 Intake Total 400 ml Output Total 125 ml Balance 275 ml medications Current Medications Medications Dose Ordered Sig/Jesus Route Start Time Stop Time Status Last Admin Dose Admin Aspirin 81 mg DAILY PO 08/20/24 10:00 08/20/24 09:44 81 MG Enoxaparin Sodium 40 mg DAILY SC 08/20/24 10:00 08/20/24 09:46 40 MG Nitroglycerin 0.4 mg Q5MINP PRN SL 08/19/24 14:45 Morphine Sulfate 2 mg Q30M PRN IV 08/19/24 14:45 Bumetanide 2 mg BIDD IV 08/19/24 18:00 08/20/24 18:24 2 MG Metolazone 5 mg DAILY PO 08/21/24 10:00 Atorvastatin Calcium 40 mg HS PO 08/20/24 22:00 Carvedilol 6.25 mg Q12HR PO 08/20/24 22:00 Patient Own Medication 1 HS PO 08/20/24 22:00 Ondansetron HCl 4 mg Q6HPRN PRN IV 08/20/24 17:30 08/20/24 18:20 4 MG Examination Constitutional: Patient alert and oriented to time, place and person and does not appear to be in acute distress Gen - no pallor, no icterus, no cyanosis, no clubbing, no LAD, 3+ pitting edema in the bilateral lower extremities. Skin - Patients skin is warm and dry. HEENT - normocephalic, atraumatic, moist mucous membranes. Neck - full ROM, no LAD, JVD positive Pulmonary - B/L equal breath sounds with bibasilar coarse crackles , no wheezing, no stridor. cardiovascular - variable S1,S2 heard. Systolic murmur at the apex. GI - soft abdomen. no hepatospleenomegaly. Bowel sounds normoactive Neurological - Bilateral upper extremity strength 5/5, bilateral lower extremity strength 5/5, no facial droop, normal speech, no tremor, no sensory deficiets. laboratory and microbiology Laboratory Tests 08/20/24 04:10 Test 08/20/24 04:10 Range/Units Serum Glucose 143 H 74-106 mg/dL Problem List/Assessment/Plan Problem List/Assessment/Plan Assessment Acute on chronic hypoxic respiratory failure Acute exacerbation of heart failure with reduced ejection fraction Ischemic cardiomyopathy H/O coronary artery disease s/p PCI ERNESTO on CKD likely due to VMN Hypertensive heart disease with a heart failure Valvular heart disease s/p TAVR Peripheral artery disease Hypothyroidism Echocardiogram done in June 2024 showed LVEF 20% BNP 3000 Nuclear medicine V/Q scan low probability for PE Plan - diuresis with Bumex 2 mg b.i.d. IV with a goal negative balance of -2L - carvedilol 6.25 mg b.i.d. - metolazone 5 mg p.o. daily - aspirin 81 mg daily - nephrology and cardiology on board - on telemetry Goals of care discussed with the patient for over 21 minutes. Full code Plan discussed with Dr. Yao Plan discussed with: Patient My Orders My Orders Orders - AVILA BOYER Procedure Category Date Status Time Atorvastatin (Lipitor) PHA 08/20/24 In Process 22:00 Carvedilol Tablet PHA 08/20/24 In Process (Coreg Tablet) 22:00 Patients Own PHA 08/20/24 In Process Medication 22:00 Ondansetron Hcl PHA 08/20/24 In Process (Zofran) 17:30 Date of Service: Aug 20, 2024 Billing Provider: GABRIELA YAO MD Common Visit Codes: 31921-[id number] INP/OBS CARE(HIGH) AVILA BOYER RESIDENT Aug 20, 2024 21:42 GABRIELA YAO MD Aug 22, 2024 11:13
[2024-08-21] VITALS (8 sets, daily range): BP systolic 113–141; BP diastolic 59–79; PULSE 70–84; RESP 16–20; TEMP 97.4–98.8; O2SAT 93–99
[2024-08-21 06:04] LABS: Basophils # (auto) 0.1 10 ^3/uL (0-0.2); Hemoglobin 12.2 g/dL (13.5-17.5); Monocytes # (auto) 0.7 10 ^3/uL (0-1.3); Nucleated Red Blood Cells % 0.1 %; Red Cell Distribution Width 15.1 % (11.8-14.3)
[2024-08-21 06:08] LABS: Basophils % (auto) 0.8 % (0.0-2.0); Eosinophils # (auto) 0.4 10 ^3/uL (0-0.8); Eosinophils % (auto) 5.4 % (0.0-7.0); Lymphocytes # (auto) 0.7 10 ^3/uL (0.4-5.4); Lymphocytes % (auto) 10.9 % (10.0-50.0); Mean Corpuscular Hemoglobin 34.1 pg (28.0-32.0); Mean Corpuscular Volume 103.3 fL (80.0-100.0); Monocytes % (auto) 10.2 % (0.0-12.0); Neutrophils % (auto) 72.7 % (37.0-80.0); Platelet Count (auto) 102 10^3/uL (140-450); Red Blood Cells 3.58 10^6/uL (4.5-5.90); White Blood Cell 6.8 10^3/uL (4.4-10.8)
[2024-08-21 06:16] LABS: Alanine Aminotransferase 27 U/L (7-40); Anion Gap 10 (5-15); Aspartate Aminotransferase 23 U/L (13-40); BUN/Creatinine Ratio 30.6 (10.0-20.0); Calcium 9.3 mg/dL (8.7-10.4); Carbon Dioxide 25 mmol/L (20-31); Chloride 104 mmol/L (98-107); Sodium 139 mmol/L (136-145); Total Protein 6.9 g/dL (5.7-8.2)
[2024-08-21 06:17] LABS: Bilirubin, Total 1.2 mg/dL (0.2-1.0)
[2024-08-21 06:18] LABS: Alkaline Phosphatase 154 U/L (46-116); Blood Urea Nitrogen 78 mg/dL (9-23); Glucose 107 mg/dL (74-106)
--- NOTE | 2024-08-21 07:45 | DVHSR ---
APPROVED REPORT EXAM: Two-dimensional and M-mode echocardiogram with Doppler and color Doppler. Blood Pressure: 150/64 mmHg INDICATION eval for cardiac ef and function Surgery/Intervention Valve Replacement: Type: TAVR Pacemaker: [employer] Height: 5'10, Weight: 211 DIMENSIONS LVDd6.1 (3.8-5.7cm)LA (2D)4.2 (1.9-4.0cm)Aortic Root2.9 (2.0-3.7cm) LVDs5.5 (2.5-4.0cm)LA (MM) (1.9-4.0cm)Aortic Cusp Exc1.2 (1.5-2.0cm) EF (%) 18.0 (55-70%)Rt. Atrium6.8 (1.9-4.0cm)Asc. Aorta cm IVSd1.0 (0.7-1.1cm)RV (D)5.4 (1.8-2.4cm) PWd1.0 (0.7-1.1cm) Mitral Valve MitralMitral Stenosis E wave0.98m/sMV Mean GR.mmHg A wave0.44m/sMV Peak GR.90mmHg E/A ratio2.22D MVAcm2 DECEL [id number] 1/2 Timems Aortic Valve Aortic ValveAortic Stenosis V11.24m/Elian Mean GR.8mmHg V21.78m/Elian Peak GR.13mmHg LVOT Diameter2.0 (1.8-2.4cm)Doppler AVA2.19cm2 Pulmonic Valve V21.16m/s Tricuspid Valve TR Velocity3.11m/s [id number] Conclusion Dilated 4 chambers. Left ventricle: Left ventricle is dilated with significantly reduced systolic function. LVEF was ar ound 20%. Diffuse hypokinesis of left ventricle was seen. EDP was assessed to be elevated. Right ventricle was dilated with reduced systolic function. Both atria were moderately dilated. Pac ing wire was seen in right-sided chambers. Aortic valve: Bioprosthetic valve was positioned in aortic valve area. It worked properly. There w as no stenosis/mismatch. There was mild aortic insufficiency. There was [id number]-[id number] mitral regurgitation. There was udawcrki-jg-krwlkz tricuspid regurgitatio n. There was mild pulmonary valve insufficiency. Right ventricular systolic pressure was assessed around 60 mm Hg. There was no pericardial effusion.
--- NOTE | 2024-08-21 07:47 | DVHPN2 ---
Progress Note - Dictate Date Seen: Aug 21, 2024 Medical Necessity Reason Pt with a Central, PICC or Fol: No vital signs Vital Sign Date Time Temp Pulse Resp B/P (MAP) Pulse Ox O2 Delivery O2 Flow Rate FiO2 08/21/24 05:51 139/79 08/21/24 05:00 97.4 74 18 98 97.4 08/20/24 20:00 Nasal Cannula* 2 28 Total Intake and Output 08/20/24 08/20/24 08/21/24 15:00 23:00 07:00 Intake Total 1060 ml 640 ml Output Total 1020 ml 1050 ml Balance 40 ml -410 ml medications Current Medications Medications Dose Ordered Sig/Jesus Route Start Time Stop Time Status Last Admin Dose Admin Aspirin 81 mg DAILY PO 08/20/24 10:00 08/20/24 09:44 81 MG Enoxaparin Sodium 40 mg DAILY SC 08/20/24 10:00 08/20/24 09:46 40 MG Nitroglycerin 0.4 mg Q5MINP PRN SL 08/19/24 14:45 Morphine Sulfate 2 mg Q30M PRN IV 08/19/24 14:45 Bumetanide 2 mg BIDD IV 08/19/24 18:00 08/21/24 05:51 2 MG Metolazone 5 mg DAILY PO 08/21/24 10:00 Atorvastatin Calcium 40 mg HS PO 08/20/24 22:00 08/20/24 21:37 40 MG Carvedilol 6.25 mg Q12HR PO 08/20/24 22:00 08/20/24 21:39 6.25 MG Patient Own Medication 1 HS PO 08/20/24 22:00 08/20/24 21:56 1 Ondansetron HCl 4 mg Q6HPRN PRN IV 08/20/24 17:30 08/20/24 18:20 4 MG laboratory and microbiology Laboratory Tests 08/21/24 04:55 Test 08/21/24 04:55 Range/Units Serum Glucose 107 H 74-106 mg/dL Assessment/Plan Patient is a 64-year-old gentleman who presented to the hospital with 1 week of worsening shortness of breath. He did have some left shoulder pain for few days also. It is of note that the patient is known to have degenerative disc disease of the neck for which is referred to orthopedic surgery for its management. Patient is known to have systolic heart failure. Patient mentions that his weight has increased around 20 lb in the past few weeks. Cardiology is involved for cardiac aspects of care. Patient is known to our practice from before. Does have history of systolic heart failure and also history of valvular heart disease and status post TAVR in 2022. Does also have CKD for which follows with Nephrology. Does go to vascular. Mentions that he has an ulcer in the right heel. Positive JVD. Mucosa is pink and wet. No carotid bruit. Lung examination reveals crackles in the lower lungs. Not using accessory muscles of breathing. Cardiac: Regular, no thrill. Systolic murmur 3/6 in the apex is heard. History gallop is heard. Abdomen is distended. Bowel sound is positive. There is no tenderness. Questionable hepatomegaly is positive. Extremities reveal 3+ edema bilaterally. Could not feel pulses bilaterally. Past medical history includes coronary artery disease, status post PCI, systolic heart failure, status post ICD ([employer]) implantation, valvular heart disease, status post TAVR, insmeayd-pr-nlncsg TR, diabetes mellitus, pulmonary hypertension (type 2), degenerative disc disease, hypertension, hyperlipidemia, CKD, DJD, abnormal LFT and history of carpal tunnel surgery. Left heart catheterization of October 25, 2022 (performed in [facility]) revealed patent stent in LAD/diagonal/LCX/RCA. OM1 was a small to medium-sized vessel with 90% lesion. RPDA was a small vessel with 60% lesion. To be managed medically Echocardiogram of July 18, 2024 (performed in the office) revealed moderate 4 chamber dilatation, LVEF of less than 20%, increased EDP, bioprosthetic valve in aortic position working properly, mscb-oa-jksoopee mitral regurgitation, mbifozni-aq-wfkdpa tricuspid regurgitation and right ventricular systolic pressure of 48 mm Hg Hemoglobin: 12.7 - 12.2 - 12.2 Platelet: 118 - 113 - 102 D-dimer: 0.56 Creatinine: 2.75 - 2.54 - 2.55 Potassium: 4.7 - 4.0 - 4.0 TSH: 5.49 Troponin (high sensitive): 84 - 88 - 89 - 85 BNP: 3063.83 Chest x-ray revealed: IMPRESSION: Cardiomegaly Arterial duplex of lower ext revealed: IMPRESSION: No hemodynamically significant stenosis based on peak systolic velocity criteria. Bilateral dorsalis pedis arteries are not visualized due to bandages. Venous duplex of lower ext revealed: Impression: No evidence of right or left femoropopliteal venous thrombosis. V/Q scan reported: IMPRESSION: Low probability for PE. Tele reveals sinus rhythm Echocardiogram reported: Dilated 4 chambers. Left ventricle: Left ventricle is dilated with significantly reduced systolic function. LVEF was around 20%. Diffuse hypokinesis of left ventricle was seen. EDP was assessed to be elevated. Right ventricle was dilated with reduced systolic function. Both atria were moderately dilated. Pacing wire was seen in right-sided chambers. Aortic valve: Bioprosthetic valve was positioned in aortic valve area. It worked properly. There was no stenosis/mismatch. There was mild aortic insufficiency. There was mdnh-ha-csnnddga mitral regurgitation. There was zlfdswgs-qy-uxugoc tricuspid regurgitation. There was mild pulmonary valve insufficiency. Right ventricular systolic pressure was assessed around 60 mm Hg. There was no pericardial effusion. Patient is a 64-year-old gentleman with known history of systolic heart failure, valvular heart disease, type 2 pulmonary hypertension who presented with worsening shortness of breath and gaining weight. Presentation is in favor of acute on chronic systolic heart failure. Did complain of atypical left shoulder/neck pain. Is known to have degenerative disc disease in the neck. Acute coronary syndrome is less likely. Most likely, mild increase in troponin reflects demand physiology in the patient with systolic heart failure. PE was ruled out by V/Q scan. Being followed by Nephrology. Acute on chronic systolic heart failure Valvular heart disease Status post TAVR Wflhnljy-rr-sfzipa tricuspid regurgitation Pulmonary hypertension, type 2 CKD Hypertension Hyperlipidemia Diabetes mellitus Status post ICD ([employer]) implantation PAD Cardiac suggestion for management: Manage on telemetry Diuresis (as per Nephrology) Follow-up electrolytes and kidney function tests and correct abnormalities. Keep potassium above 4 and magnesium above 2 On Coreg To start further GDMT (Entresto...) after Nephrology permission Nephrology follow up Further evaluation and management depends on the above and clinical course A total of 55 minutes was spent reviewing the patient record, examining the patient, making a diagnostic and therapeutic plan, discussing this plan with medical personnel, following up on diagnostic studies and following the patient for clinical stability excluding any and all procedures. At least 50% of this time was spent in direct, qlqm-gs-nyta contact. Thank you for allowing me to participate in this patient's care. Further recommendations will depend on patient's clinical course. Please do not hesitate to contact me if you have any questions or concerns. This medical document was created using electronic medical record system with [employer] computerized dictation system. Although this document has been carefully reviewed, there may still be some phonetic and typographical errors. These areas are purely typographical due to the imperfection of the software programs, and do not reflect any compromise in the patient's medical care. Plan discussed with: Patient, Other (nurse) GLADIS SAINI MD Aug 21, 2024 07:47
--- NOTE | 2024-08-21 10:33 | CONS ---
Pharmacy Clinical Information: CQM HF (missing anti-hyperglycemic drugs). Patient most recent hemoglobin A1c of 5.6% was done in 2017. Per ADA guidelines, it is classified as non-diabetes and might not require antihyperglycemic medication. A more recent hemoglobin A1c may be obtained before making a guideline based recommendation. PAPA MONTEZ PHARMACIST Aug 21, 2024 10:33
[2024-08-21] MEDS: metOLazone 5 MG TAB PO SCH (10:47)
[2024-08-21] MEDS: HYDROcodone-ACET 5/325MG TAB PO ONE (11:30)
[2024-08-21] MEDS: HYDROcodone-ACET 5/325MG TAB PO PRN (15:08)
--- NOTE | 2024-08-21 17:23 | DVHPN2 ---
Progress Note - Dictate Date Seen: Aug 21, 2024 Medical Necessity Reason Pt with a Central, PICC or Fol: No Subjective feeling much better lower extremity swelling improved vital signs Vital Sign Date Time Temp Pulse Resp B/P (MAP) Pulse Ox O2 Delivery O2 Flow Rate FiO2 08/21/24 17:00 97.7 70 16 113/59 (77) 93 97.7 08/21/24 08:00 Room Air* 0 21 Total Intake and Output 08/20/24 08/20/24 08/21/24 15:00 23:00 07:00 Intake Total 1060 ml 640 ml Output Total 1020 ml 1050 ml Balance 40 ml -410 ml medications Current Medications Medications Dose Ordered Sig/Jesus Route Start Time Stop Time Status Last Admin Dose Admin Aspirin 81 mg DAILY PO 08/20/24 10:00 08/21/24 10:47 81 MG Enoxaparin Sodium 40 mg DAILY SC 08/20/24 10:00 08/20/24 09:46 40 MG Nitroglycerin 0.4 mg Q5MINP PRN SL 08/19/24 14:45 Morphine Sulfate 2 mg Q30M PRN IV 08/19/24 14:45 Bumetanide 2 mg BIDD IV 08/19/24 18:00 08/21/24 05:51 2 MG Metolazone 5 mg DAILY PO 08/21/24 10:00 08/21/24 10:47 5 MG Atorvastatin Calcium 40 mg HS PO 08/20/24 22:00 08/20/24 21:37 40 MG Carvedilol 6.25 mg Q12HR PO 08/20/24 22:00 08/21/24 10:46 6.25 MG Patient Own Medication 1 HS PO 08/20/24 22:00 08/20/24 21:56 1 Ondansetron HCl 4 mg Q6HPRN PRN IV 08/20/24 17:30 08/20/24 18:20 4 MG Acetaminophen/ Hydrocodone Bitart 1 tab Q8HPRN PRN PO 08/21/24 11:30 08/21/24 15:08 1 TAB objective Gen: NAD, AAOx3 HEENT: NC,AT Lungs: Crackles lung bases Cardiac: RRR, + systolic murmur Abd: soft, no tenderness Ext: + edema Neuro: no focal deficits laboratory and microbiology Laboratory Tests 08/21/24 04:55 Test 08/21/24 04:55 Range/Units Serum Glucose 107 H 74-106 mg/dL Assessment/Plan ERNESTO secondary to cardiorenal syndrome CKD IIIb Acute on chronic systolic CHF (EF: 20%) Elevated troponin, serial no uptrend s/p TAVR s/p ICD mod/severe tricuspid regurgitation CAD s/p stent HTN COPD Peripheral artery disease Plan: GFR stable adequate UO: 2070 cc in last 24 hours Continue Bumex 2 mg IV BID Continue Metolazone 5 mg PO daily Fluid restriction daily BMP Cardiology consult appreciated Strict I&Os Plan discussed with: Patient FATUMA AVINA MD Aug 21, 2024 17:23
--- NOTE | 2024-08-21 23:22 | DVHPNRES ---
Progress Note Date Seen: Aug 21, 2024 Resident Creating Document: AVILA BOYER RESIDENT Medical Necessity Reason Pt with a Central, PICC or Fol: No Subjective Review of Systems Reports improvement in shortness of breath , Off Oxygen no chest pain or palpitations Objective vital signs Vital Sign Date Time Temp Pulse Resp B/P (MAP) Pulse Ox O2 Delivery O2 Flow Rate FiO2 08/21/24 21:49 70 129/69 08/21/24 21:00 98.8 20 99 98.8 08/21/24 20:00 Room Air* 0 21 Total Intake and Output 08/20/24 08/20/24 08/21/24 15:00 23:00 07:00 Intake Total 1060 ml 640 ml Output Total 1020 ml 1050 ml Balance 40 ml -410 ml medications Current Medications Medications Dose Ordered Sig/Jesus Route Start Time Stop Time Status Last Admin Dose Admin Aspirin 81 mg DAILY PO 08/20/24 10:00 08/21/24 10:47 81 MG Enoxaparin Sodium 40 mg DAILY SC 08/20/24 10:00 08/20/24 09:46 40 MG Nitroglycerin 0.4 mg Q5MINP PRN SL 08/19/24 14:45 Morphine Sulfate 2 mg Q30M PRN IV 08/19/24 14:45 Bumetanide 2 mg BIDD IV 08/19/24 18:00 08/21/24 17:54 2 MG Metolazone 5 mg DAILY PO 08/21/24 10:00 08/21/24 10:47 5 MG Atorvastatin Calcium 40 mg HS PO 08/20/24 22:00 08/21/24 21:47 40 MG Carvedilol 6.25 mg Q12HR PO 08/20/24 22:00 08/21/24 21:49 6.25 MG Patient Own Medication 1 HS PO 08/20/24 22:00 08/21/24 21:51 1 Ondansetron HCl 4 mg Q6HPRN PRN IV 08/20/24 17:30 08/21/24 21:47 4 MG Acetaminophen/ Hydrocodone Bitart 1 tab Q8HPRN PRN PO 08/21/24 11:30 08/21/24 15:08 1 TAB Examination Constitutional: Patient alert and oriented to time, place and person and does not appear to be in acute distress Gen - no pallor, no icterus, no cyanosis, no clubbing, no LAD, 2+ pitting edema in the bilateral lower extremities. Skin - Patients skin is warm and dry. HEENT - normocephalic, atraumatic, moist mucous membranes. Neck - full ROM, no LAD, JVD positive Pulmonary - B/L equal breath sounds with improved bibasilar coarse crackles , no wheezing, no stridor. cardiovascular - variable S1,S2 heard. Systolic murmur at the apex. GI - soft abdomen. no hepatospleenomegaly. Bowel sounds normoactive Neurological - Bilateral upper extremity strength 5/5, bilateral lower extremity strength 5/5, no facial droop, normal speech, no tremor, no sensory deficiets. laboratory and microbiology Laboratory Tests 08/21/24 04:55 Test 08/21/24 04:55 Range/Units Serum Glucose 107 H 74-106 mg/dL Problem List/Assessment/Plan Problem List/Assessment/Plan Assessment Acute on chronic hypoxic respiratory failure Acute exacerbation of heart failure with reduced ejection fraction Ischemic cardiomyopathy H/O coronary artery disease s/p PCI ERNESTO on CKD likely due to VMN Hypertensive heart disease with a heart failure Valvular heart disease s/p TAVR Peripheral artery disease Hypothyroidism Echocardiogram done in June 2024 showed LVEF 20% BNP 3000 Nuclear medicine V/Q scan low probability for PE Plan - diuresis with Bumex 2 mg b.i.d. IV with a goal negative balance of -2L - carvedilol 6.25 mg b.i.d. - metolazone 5 mg p.o. daily - aspirin 81 mg daily - nephrology and cardiology on board - on telemetry Goals of care discussed with the patient for over 21 minutes. Full code Plan discussed with Dr. Yao Plan discussed with: Patient My Orders My Orders Orders - AVILA BOYER Procedure Category Date Status Time Hydrocodone-Acet PHA 08/21/24 In Process 5/325mg Tab ([place] 11:30 Date of Service: Aug 21, 2024 Billing Provider: GABRIELA YAO MD Common Visit Codes: 58480-SGLGNIBOPE INP/OBS CARE(HIGH) AVILA BOYER RESIDENT Aug 21, 2024 23:22 GABRIELA YAO MD Aug 22, 2024 11:29
[2024-08-22] VITALS (9 sets, daily range): BP systolic 117–136; BP diastolic 39–68; PULSE 66–77; RESP 18–20; TEMP 98–98.8; O2SAT 95–100
[2024-08-22 06:14] LABS: Basophils # (auto) 0.1 10 ^3/uL (0-0.2); Basophils % (auto) 0.9 % (0.0-2.0); Eosinophils # (auto) 0.4 10 ^3/uL (0-0.8); Lymphocytes # (auto) 0.5 10 ^3/uL (0.4-5.4); Nucleated Red Blood Cells % 0.1 %
[2024-08-22 06:18] LABS: Eosinophils % (auto) 5.6 % (0.0-7.0); Hemoglobin 11.8 g/dL (13.5-17.5); Mean Corpuscular Hemoglobin 34.1 pg (28.0-32.0); Mean Corpuscular Hgb Conc. 32.9 g/dL (32.0-36.0); Mean Corpuscular Volume 103.7 fL (80.0-100.0); Monocytes # (auto) 0.9 10 ^3/uL (0-1.3); Monocytes % (auto) 13.5 % (0.0-12.0); Neutrophils # (auto) 4.6 10 ^3/uL (1.6-8.6); Red Blood Cells 3.47 10^6/uL (4.5-5.90); White Blood Cell 6.3 10^3/uL (4.4-10.8)
--- NOTE | 2024-08-22 06:29 | DVHPN2 ---
Progress Note - Dictate Date Seen: Aug 22, 2024 Medical Necessity Reason Pt with a Central, PICC or Fol: No Subjective feeling much better lower extremity swelling improved vital signs Vital Sign Date Time Temp Pulse Resp B/P (MAP) Pulse Ox O2 Delivery O2 Flow Rate FiO2 08/22/24 05:50 136/68 08/22/24 05:00 98.2 70 18 97 98.2 08/21/24 20:00 Nasal Cannula* 2 28 Total Intake and Output 08/21/24 08/21/24 08/22/24 15:00 23:00 07:00 Intake Total 240 ml 620 ml 800 ml Output Total 2400 ml 1675 ml Balance 240 ml -1780 ml -875 ml medications Current Medications Medications Dose Ordered Sig/Jesus Route Start Time Stop Time Status Last Admin Dose Admin Aspirin 81 mg DAILY PO 08/20/24 10:00 08/21/24 10:47 81 MG Enoxaparin Sodium 40 mg DAILY SC 08/20/24 10:00 08/20/24 09:46 40 MG Nitroglycerin 0.4 mg Q5MINP PRN SL 08/19/24 14:45 Morphine Sulfate 2 mg Q30M PRN IV 08/19/24 14:45 Bumetanide 2 mg BIDD IV 08/19/24 18:00 08/22/24 05:50 2 MG Metolazone 5 mg DAILY PO 08/21/24 10:00 08/21/24 10:47 5 MG Atorvastatin Calcium 40 mg HS PO 08/20/24 22:00 08/21/24 21:47 40 MG Carvedilol 6.25 mg Q12HR PO 08/20/24 22:00 08/21/24 21:49 6.25 MG Patient Own Medication 1 HS PO 08/20/24 22:00 08/21/24 21:51 1 Ondansetron HCl 4 mg Q6HPRN PRN IV 08/20/24 17:30 08/21/24 21:47 4 MG Acetaminophen/ Hydrocodone Bitart 1 tab Q8HPRN PRN PO 08/21/24 11:30 08/21/24 23:18 1 TAB objective Gen: NAD, AAOx3 HEENT: NC,AT Lungs: Crackles lung bases Cardiac: RRR, + systolic murmur Abd: soft, no tenderness Ext: + edema Neuro: no focal deficits laboratory and microbiology Test 08/22/24 05:06 Range/Units Serum Glucose Pending Assessment/Plan ERNESTO secondary to cardiorenal syndrome CKD IIIb Acute on chronic systolic CHF (EF: 20%) Elevated troponin, serial no uptrend s/p TAVR s/p ICD mod/severe tricuspid regurgitation CAD s/p stent HTN COPD Peripheral artery disease Plan: labs from today are pending Great UO: 4 L in the last 24 hours Continue Bumex 2 mg IV BID. DC Metolazone to prevent overdiuresis Fluid restriction daily BMP Cardiology consult appreciated Strict I&Os Patient is known to me in my office. He will need a follow up with me in 2 weeks after discharge Plan discussed with: Patient FATUMA AVINA MD Aug 22, 2024 06:29
--- NOTE | 2024-08-22 06:33 | DVHPN2 ---
Progress Note - Dictate Date Seen: Aug 22, 2024 Medical Necessity Reason Pt with a Central, PICC or Fol: No vital signs Vital Sign Date Time Temp Pulse Resp B/P (MAP) Pulse Ox O2 Delivery O2 Flow Rate FiO2 08/22/24 05:50 136/68 08/22/24 05:00 98.2 70 18 97 98.2 08/21/24 20:00 Nasal Cannula* 2 28 Total Intake and Output 08/21/24 08/21/24 08/22/24 15:00 23:00 07:00 Intake Total 240 ml 620 ml 800 ml Output Total 2400 ml 1675 ml Balance 240 ml -1780 ml -875 ml medications Current Medications Medications Dose Ordered Sig/Jesus Route Start Time Stop Time Status Last Admin Dose Admin Aspirin 81 mg DAILY PO 08/20/24 10:00 08/21/24 10:47 81 MG Enoxaparin Sodium 40 mg DAILY SC 08/20/24 10:00 08/20/24 09:46 40 MG Nitroglycerin 0.4 mg Q5MINP PRN SL 08/19/24 14:45 Morphine Sulfate 2 mg Q30M PRN IV 08/19/24 14:45 Bumetanide 2 mg BIDD IV 08/19/24 18:00 08/22/24 05:50 2 MG Atorvastatin Calcium 40 mg HS PO 08/20/24 22:00 08/21/24 21:47 40 MG Carvedilol 6.25 mg Q12HR PO 08/20/24 22:00 08/21/24 21:49 6.25 MG Patient Own Medication 1 HS PO 08/20/24 22:00 08/21/24 21:51 1 Ondansetron HCl 4 mg Q6HPRN PRN IV 08/20/24 17:30 08/21/24 21:47 4 MG Acetaminophen/ Hydrocodone Bitart 1 tab Q8HPRN PRN PO 08/21/24 11:30 08/21/24 23:18 1 TAB laboratory and microbiology Test 08/22/24 05:06 Range/Units Serum Glucose Pending Assessment/Plan Patient is a 64-year-old gentleman who presented to the hospital with 1 week of worsening shortness of breath. He did have some left shoulder pain for few days also. It is of note that the patient is known to have degenerative disc disease of the neck for which is referred to orthopedic surgery for its management. Patient is known to have systolic heart failure. Patient mentions that his weight has increased around 20 lb in the past few weeks. Cardiology is involved for cardiac aspects of care. Patient is known to our practice from before. Does have history of systolic heart failure and also history of valvular heart disease and status post TAVR in 2022. Does also have CKD for which follows with Nephrology. Does go to vascular. Mentions that he has an ulcer in the right heel. Positive JVD. Mucosa is pink and wet. No carotid bruit. Lung examination reveals crackles in the lower lungs. Not using accessory muscles of breathing. Cardiac: Regular, no thrill. Systolic murmur 3/6 in the apex is heard. History gallop is heard. Abdomen is distended. Bowel sound is positive. There is no tenderness. Questionable hepatomegaly is positive. Extremities reveal 3+ edema bilaterally. Could not feel pulses bilaterally. Past medical history includes coronary artery disease, status post PCI, systolic heart failure, status post ICD ([employer]) implantation, valvular heart disease, status post TAVR, mxyyfqmb-jp-axyorp TR, diabetes mellitus, pulmonary hypertension (type 2), degenerative disc disease, hypertension, hyperlipidemia, CKD, DJD, abnormal LFT and history of carpal tunnel surgery. Left heart catheterization of October 25, 2022 (performed in [facility]) revealed patent stent in LAD/diagonal/LCX/RCA. OM1 was a small to medium-sized vessel with 90% lesion. RPDA was a small vessel with 60% lesion. To be managed medically Echocardiogram of July 18, 2024 (performed in the office) revealed moderate 4 chamber dilatation, LVEF of less than 20%, increased EDP, bioprosthetic valve in aortic position working properly, uygj-oc-covfiliw mitral regurgitation, huxpeawh-qs-ufoecx tricuspid regurgitation and right ventricular systolic pressure of 48 mm Hg D-dimer: 0.56 Creatinine: 2.75 - 2.54 - 2.55 - 2.51 Potassium: 4.7 - 4.0 - 4.0 - 3.9 TSH: 5.49 Troponin (high sensitive): 84 - 88 - 89 - 85 BNP: 3063.83 Chest x-ray revealed: IMPRESSION: Cardiomegaly Arterial duplex of lower ext revealed: IMPRESSION: No hemodynamically significant stenosis based on peak systolic velocity criteria. Bilateral dors ervin pedis arteries are not visualized due to bandages. Venous duplex of lower ext revealed: Impression: No evidence of right or left femoropopliteal venous thrombosis. V/Q scan reported: IMPRESSION: Low probability for PE. Tele reveals sinus rhythm Echocardiogram reported: Dilated 4 chambers. Left ventricle: Left ventricle is dilated with significantly reduced systolic function. LVEF was around 20%. Diffuse hypokinesis of left ventricle was seen. EDP was assessed to be elevated. Right ventricle was dilated with reduced systolic function. Both atria were moderately dilated. Pacing wire was seen in right-sided chambers. Aortic valve: Bioprosthetic valve was positioned in aortic valve area. It worked properly. There was no stenosis/mismatch. There was mild aortic insufficiency. There was gwcb-ue-uiqrjpkq mitral regurgitation. There was kooqguqg-oj-wcouyt tricuspid regurgitation. There was mild pulmonary valve insufficiency. Right ventricular systolic pressure was assessed around 60 mm Hg. There was no pericardial effusion. Patient is a 64-year-old gentleman with known history of systolic heart failure, valvular heart disease, type 2 pulmonary hypertension who presented with wors ening shortness of breath and gaining weight. Presentation is in favor of acute on chronic systolic heart failure. Did complain of atypical left shoulder/neck pain. Is known to have degenerative disc disease in the neck. Acute coronary syndrome is less likely. Most likely, mild increase in troponin reflects demand physiology in the patient with systolic heart failure. PE was ruled out by V/Q scan. Being followed by Nephrology. Acute on chronic systolic heart failure Valvular heart disease Status post TAVR Vjsdhzel-hc-mvseua tricuspid regurgitation Pulmonary hypertension, type 2 CKD Hypertension Hyperlipidemia Diabetes mellitus Status post ICD ([employer]) implantation PAD Cardiac suggestion for management: Manage on telemetry Diuresis (as per Nephrology) Follow-up electrolytes and kidney function tests and correct abnormalities. Keep potassium above 4 and magnesium above 2 On Coreg To start further GDMT (Entresto...) after Nephrology permission Nephrology follow up Further evaluation and management depends on the above and clinical course A total of 55 minutes was spent reviewing the patient record, examining the patient, making a diagnostic and therapeutic plan, discussing this plan with medical personnel, following up on diagnostic studies and following the patient for clinical stability excluding any and all procedures. At least 50% of this time was spent in direct, hhar-oc-bgac contact. Thank you for allowing me to participate in this patient's care. Further recommendations will depend on patient's clinical course. Please do not hesitate to contact me if you have any questions or concerns. This medical document was created using electronic medical record system with [employer] computerized dictation system. Although this document has been carefully reviewed, there may still be some phonetic and typographical errors. These areas are purely typographical due to the imperfection of the software programs, and do not reflect any compromise in the patient's medical care. Plan discussed with: Patient, Other (nurse) GLADIS SAINI MD Aug 22, 2024 06:33
[2024-08-22 06:37] LABS: Alanine Aminotransferase 21 U/L (7-40); Albumin 3.9 g/dL (3.2-4.8); Anion Gap 11 (5-15); Aspartate Aminotransferase 19 U/L (13-40); BUN/Creatinine Ratio 32.3 (10.0-20.0); Calcium 9.1 mg/dL (8.7-10.4); Carbon Dioxide 26 mmol/L (20-31); Chloride 102 mmol/L (98-107); Potassium 3.9 mmol/L (3.5-5.1); Sodium 139 mmol/L (136-145); Total Protein 6.7 g/dL (5.7-8.2)
[2024-08-22 06:38] LABS: Bilirubin, Total 1.1 mg/dL (0.2-1.0)
[2024-08-22 06:40] LABS: Alkaline Phosphatase 146 U/L (46-116); Glucose 108 mg/dL (74-106); Magnesium 2.7 mg/dL (1.6-2.6)
[2024-08-22 06:43] LABS: Blood Urea Nitrogen 81 mg/dL (9-23)
[2024-08-22 07:10] LABS: Platelet Count (auto) 101 10^3/uL (140-450)
--- NOTE | 2024-08-22 21:05 | DVHPNRES ---
Progress Note Date Seen: Aug 22, 2024 Resident Creating Document: AVILA BOYER RESIDENT Medical Necessity Reason Pt with a Central, PICC or Fol: No Subjective Review of Systems Reports improvement in shortness of breath , have been Off and on Oxygen through the day no chest pain or palpitations B/L lower extremity edema has significantly improved Objective vital signs Vital Sign Date Time Temp Pulse Resp B/P (MAP) Pulse Ox O2 Delivery O2 Flow Rate FiO2 08/22/24 17:36 117/39 08/22/24 17:00 98.2 73 18 100 98.2 08/22/24 08:07 Room Air* 0 21 Total Intake and Output 08/21/24 08/21/24 08/22/24 14:59 22:59 06:59 Intake Total 240 ml 620 ml 800 ml Output Total 2400 ml 1675 ml Balance 240 ml -1780 ml -875 ml medications Current Medications Medications Dose Ordered Sig/Jesus Route Start Time Stop Time Status Last Admin Dose Admin Aspirin 81 mg DAILY PO 08/20/24 10:00 08/22/24 10:50 81 MG Enoxaparin Sodium 40 mg DAILY SC 08/20/24 10:00 08/20/24 09:46 40 MG Nitroglycerin 0.4 mg Q5MINP PRN SL 08/19/24 14:45 Morphine Sulfate 2 mg Q30M PRN IV 08/19/24 14:45 Atorvastatin Calcium 40 mg HS PO 08/20/24 22:00 08/21/24 21:47 40 MG Carvedilol 6.25 mg Q12HR PO 08/20/24 22:00 08/22/24 10:50 6.25 MG Patient Own Medication 1 HS PO 08/20/24 22:00 08/21/24 21:51 1 Ondansetron HCl 4 mg Q6HPRN PRN IV 08/20/24 17:30 08/21/24 21:47 4 MG Acetaminophen/ Hydrocodone Bitart 1 tab Q8HPRN PRN PO 08/21/24 11:30 08/21/24 23:18 1 TAB Bumetanide 1 mg BIDD PO 08/23/24 06:00 UNV Examination Constitutional: Patient alert and oriented to time, place and person and does not appear to be in acute distress Gen - no pallor, no icterus, no cyanosis, no clubbing, no LAD, 1-2+ pitting edema in the bilateral lower extremities. Skin - Patients skin is warm and dry. HEENT - normocephalic, atraumatic, moist mucous membranes. Neck - full ROM, no LAD, JVD improved Pulmonary - B/L equal breath sounds with improved bibasilar coarse crackles , no wheezing, no stridor. cardiovascular - variable S1,S2 heard. Systolic murmur at the apex. GI - soft abdomen. no hepatospleenomegaly. Bowel sounds normoactive Neurological - Bilateral upper extremity strength 5/5, bilateral lower extremity strength 5/5, no facial droop, normal speech, no tremor, no sensory deficiets laboratory and microbiology Laboratory Tests 08/22/24 05:06 Test 08/22/24 05:06 Range/Units Serum Glucose 108 H 74-106 mg/dL Problem List/Assessment/Plan Problem List/Assessment/Plan Assessment Acute on chronic hypoxic respiratory failure Acute exacerbation of heart failure with reduced ejection fraction Ischemic cardiomyopathy H/O coronary artery disease s/p PCI ERNESTO on CKD likely due to VMN Hypertensive heart disease with a heart failure Valvular heart disease s/p TAVR Peripheral artery disease Hypothyroidism Echocardiogram done in June 2024 showed LVEF 20% BNP 3000 Nuclear medicine V/Q scan low probability for PE Plan - As per nephrology patient to be switched to bumex 1mg po bid from tomorrow - carvedilol 6.25 mg b.i.d. - metolazone 5 mg p.o. daily stopped - aspirin 81 mg daily - nephrology recommends okay to start entresto - on telemetry Goals of care discussed with the patient for over 21 minutes. Full code Plan discussed with Dr. Yao Plan discussed with: Patient My Orders My Orders Orders - AVILA BOYER RESIDENT Procedure Category Date Status Time * Dietary Consult CONS 08/22/24 Transmitted 11:50 Bumetanide Tablet PHA 08/23/24 Logged (Bumex Tablet) 06:00 Dietary Evaluation Review Comments: 1) CCHO 60gm + renal specific 70gm Diet 2) Refer to CDE on DC 3) Continue current plan of care Expected Outcomes/Goals: improved CMP & CBC values continue to have adequate PO intake fu 3-5 days Date of Service: Aug 22, 2024 Billing Provider: GABRIELA YAO MD Common Visit Codes: [id number] INP/OBS CARE(HIGH) AVILA BOYER RESIDENT Aug 22, 2024 21:05 GABRIELA YAO MD Aug 26, 2024 14:49
[2024-08-23] VITALS (7 sets, daily range): BP systolic 118–128; BP diastolic 58–73; PULSE 65–70; RESP 18–20; TEMP 37.1; O2SAT 95–100
[2024-08-23] MEDS: BUMETANIDE 1 MG TAB PO SCH (05:37)
[2024-08-23 07:29] LABS: Eosinophils # (auto) 0.4 10 ^3/uL (0-0.8); Lymphocytes # (auto) 0.6 10 ^3/uL (0.4-5.4); Monocytes # (auto) 0.7 10 ^3/uL (0-1.3); Neutrophils # (auto) 3.6 10 ^3/uL (1.6-8.6); Red Cell Distribution Width 14.6 % (11.8-14.3); White Blood Cell 5.3 10^3/uL (4.4-10.8)
[2024-08-23 07:31] LABS: Basophils # (auto) 0 10 ^3/uL (0-0.2); Basophils % (auto) 0.9 % (0.0-2.0); Eosinophils % (auto) 6.7 % (0.0-7.0); Hematocrit 34.9 % (41.0-53.0); Lymphocytes % (auto) 12.1 % (10.0-50.0); Mean Corpuscular Hemoglobin 35.3 pg (28.0-32.0); Mean Corpuscular Hgb Conc. 34.3 g/dL (32.0-36.0); Mean Corpuscular Volume 102.7 fL (80.0-100.0); Monocytes % (auto) 13.6 % (0.0-12.0); Neutrophils % (auto) 66.7 % (37.0-80.0); Platelet Count (auto) 103 10^3/uL (140-450)
[2024-08-23 07:44] LABS: Anion Gap 13 (5-15); Carbon Dioxide 28 mmol/L (20-31)
[2024-08-23 07:45] LABS: Calcium 9.1 mg/dL (8.7-10.4)
[2024-08-23 07:46] LABS: Chloride 95 mmol/L (98-107); Potassium 3.5 mmol/L (3.5-5.1); Sodium 136 mmol/L (136-145)
[2024-08-23 07:50] LABS: BUN/Creatinine Ratio 31.4 (10.0-20.0)
[2024-08-23 07:51] LABS: Blood Urea Nitrogen 82 mg/dL (9-23); Glucose 122 mg/dL (74-106)
--- NOTE | 2024-08-23 11:13 | DVHPN2 ---
Progress Note - Dictate Date Seen: Aug 23, 2024 Medical Necessity Reason Pt with a Central, PICC or Fol: No vital signs Vital Sign Date Time Temp Pulse Resp B/P (MAP) Pulse Ox O2 Delivery O2 Flow Rate FiO2 08/23/24 09:49 68 127/85 08/23/24 09:00 98.4 20 95 98.4 08/23/24 08:05 Room Air* 0 21 Total Intake and Output 08/22/24 08/22/24 08/23/24 14:59 22:59 06:59 Intake Total 882 ml 345 ml Output Total 1850 ml 2000 ml Balance -968 ml -1655 ml medications Current Medications Medications Dose Ordered Sig/Jesus Route Start Time Stop Time Status Last Admin Dose Admin Aspirin 81 mg DAILY PO 08/20/24 10:00 08/23/24 09:48 81 MG Enoxaparin Sodium 40 mg DAILY SC 08/20/24 10:00 08/20/24 09:46 40 MG Nitroglycerin 0.4 mg Q5MINP PRN SL 08/19/24 14:45 Morphine Sulfate 2 mg Q30M PRN IV 08/19/24 14:45 Atorvastatin Calcium 40 mg HS PO 08/20/24 22:00 08/22/24 21:36 40 MG Carvedilol 6.25 mg Q12HR PO 08/20/24 22:00 08/23/24 09:49 6.25 MG Patient Own Medication 1 HS PO 08/20/24 22:00 08/22/24 21:25 1 Ondansetron HCl 4 mg Q6HPRN PRN IV 08/20/24 17:30 08/23/24 09:50 4 MG Acetaminophen/ Hydrocodone Bitart 1 tab Q8HPRN PRN PO 08/21/24 11:30 08/22/24 21:41 1 TAB Bumetanide 1 mg BIDD PO 08/23/24 06:00 08/23/24 05:37 1 MG laboratory and microbiology Laboratory Tests 08/23/24 06:29 Test 08/23/24 06:29 Range/Units Serum Glucose 122 H 74-106 mg/dL Assessment/Plan Patient is a 64-year-old gentleman who presented to the hospital with 1 week of worsening shortness of breath. He did have some left shoulder pain for few days also. It is of note that the patient is known to have degenerative disc disease of the neck for which is referred to orthopedic surgery for its management. Patient is known to have systolic heart failure. Patient mentions that his weight has increased around 20 lb in the past few weeks. Cardiology is involved for cardiac aspects of care. Patient is known to our practice from before. Does have history of systolic heart failure and also history of valvular heart disease and status post TAVR in 2022. Does also have CKD for which follows with Nephrology. Does go to vascular. Mentions that he has an ulcer in the right heel. Positive JVD. Mucosa is pink and wet. No carotid bruit. Lung examination reveals crackles in the lower lungs. Not using accessory muscles of breathing. Cardiac: Regular, no thrill. Systolic murmur 3/6 in the apex is heard. History gallop is heard. Abdomen is distended. Bowel sound is positive. There is no tenderness. Questionable hepatomegaly is positive. Extremities reveal 3+ edema bilaterally. Could not feel pulses bilaterally. Past medical history includes coronary artery disease, status post PCI, systolic heart failure, status post ICD ([employer]) implantation, valvular heart disease, status post TAVR, fylnekfo-nb-hdrgyu TR, diabetes mellitus, pulmonary hypertension (type 2), degenerative disc disease, hypertension, hyperlipidemia, CKD, DJD, abnormal LFT and history of carpal tunnel surgery. Left heart catheterization of October 25, 2022 (performed in [facility]) revealed patent stent in LAD/diagonal/LCX/RCA. OM1 was a small to medium-sized vessel with 90% lesion. RPDA was a small vessel with 60% lesion. To be managed medically Echocardiogram of July 18, 2024 (performed in the office) revealed moderate 4 chamber dilatation, LVEF of less than 20%, increased EDP, bioprosthetic valve in aortic position working properly, pyae-rq-wvudxalh mitral regurgitation, bzjfrsru-kc-luijrg tricuspid regurgitation and right ventricular systolic pressure of 48 mm Hg D-dimer: 0.56 Creatinine: 2.75 - 2.54 - 2.55 - 2.51 - 2.61 Potassium: 4.7 - 4.0 - 4.0 - 3.9 - 3.5 TSH: 5.49 Troponin (high sensitive): 84 - 88 - 89 - 85 BNP: 3063.83 Chest x-ray revealed: IMPRESSION: Cardiomegaly Arterial duplex of lower ext revealed: IMPRESSION: No hemodynamically significant stenosis based on peak systolic velocity criteria. Bilateral dorsalis pedis arteries are not visualized due to bandages. Venous duplex of lower ext revealed: Impression: No evidence of right or left femoropopliteal venous thrombosis. V/Q scan reported: IMPRESSION: Low probability for PE. Tele reveals sinus rhythm Echocardiogram reported: Dilated 4 chambers. Left ventricle: Left ventricle is dilated with significantly reduced systolic function. LVEF was around 20%. Diffuse hypokinesis of left ventricle was seen. EDP was assessed to be elevated. Right ventricle was dilated with reduced systolic function. Both atria were moderately dilated. Pacing wire was seen in right-sided chambers. Aortic valve: Bioprosthetic valve was positioned in aortic valve area. It worked properly. There was no stenosis/mismatch. There was mild aortic insufficiency. There was lytn-sj-eftsdujl mitral regurgitation. There was lrmfzevc-tz-mxyfbb tricuspid regurgitation. There was mild pulmonary valve insufficiency. Right ventricular systolic pressure was assessed around 60 mm Hg. There was no pericardial effusion. Patient is a 64-year-old gentleman with known history of systolic heart failure, valvular heart disease, type 2 pulmonary hypertension who presented with worsening shortness of breath and gaining weight. Presentation is in favor of acute on chronic systolic heart failure. Did complain of atypical left shoulder/neck pain. Is known to have degenerative disc disease in the neck. Acute coronary syndrome is less likely. Most likely, mild increase in troponin reflects demand physiology in the patient with systolic heart failure. PE was ruled out by V/Q scan. Being followed by Nephrology. Acute on chronic systolic heart failure Valvular heart disease Status post TAVR Vuaobizh-mx-wjerpi tricuspid regurgitation Pulmonary hypertension, type 2 CKD Hypertension Hyperlipidemia Diabetes mellitus Status post ICD ([employer]) implantation PAD Cardiac suggestion for management: Manage on telemetry Diuresis (as per Nephrology) Follow-up electrolytes and kidney function tests and correct abnormalities. Keep potassium above 4 and magnesium above 2 On Coreg Start Entresto Nephrology follow up Cardiac durham, can be followed as outpatient Further evaluation and management depends on the above and clinical course A total of 55 minutes was spent reviewing the patient record, examining the patient, making a diagnostic and therapeutic plan, discussing this plan with medical personnel, following up on diagnostic studies and following the patient for clinical stability excluding any and all procedures. At least 50% of this time was spent in direct, ewkl-pf-pcml contact. Thank you for allowing me to participate in this patient's care. Further recommendations will depend on patient's clinical course. Please do not hesitate to contact me if you have any questions or concerns. This medical document was created using electronic medical record system with [employer] computerized dictation system. Although this document has been carefully reviewed, there may still be some phonetic and typographical errors. These areas are purely typographical due to the imperfection of the software programs, and do not reflect any compromise in the patient's medical care. Dietary Evaluation Review Comments: 1) CCHO 60gm + renal specific 70gm Diet 2) Refer to CDE on DC 3) Continue current plan of care Expected Outcomes/Goals: improved CMP & CBC values continue to have adequate PO intake fu 3-5 days Plan discussed with: Patient, Other (nurse) GLADIS SAINI MD Aug 23, 2024 11:13
[2024-08-23] MEDS: POTASSIUM CHL 20 Meq TABLET PO ONE (13:12)
[2024-08-23] MEDS: CLOPIDOGREL BISULFATE 75 MG TAB PO ONE (13:12)
--- NOTE | 2024-08-23 13:28 | DVHPN2 ---
Progress Note - Dictate Date Seen: Aug 23, 2024 Medical Necessity Reason Pt with a Central, PICC or Fol: No Subjective feeling much better lower extremity swelling improved vital signs Vital Sign Date Time Temp Pulse Resp B/P (MAP) Pulse Ox O2 Delivery O2 Flow Rate FiO2 08/23/24 13:00 98.7 67 20 127/73 (91) 97 98.7 08/23/24 08:05 Room Air* 0 21 Total Intake and Output 08/22/24 08/22/24 08/23/24 15:00 23:00 07:00 Intake Total 882 ml 345 ml Output Total 1850 ml 2000 ml Balance -968 ml -1655 ml medications Current Medications Medications Dose Ordered Sig/Jesus Route Start Time Stop Time Status Last Admin Dose Admin Aspirin 81 mg DAILY PO 08/20/24 10:00 08/23/24 09:48 81 MG Enoxaparin Sodium 40 mg DAILY SC 08/20/24 10:00 08/20/24 09:46 40 MG Nitroglycerin 0.4 mg Q5MINP PRN SL 08/19/24 14:45 Morphine Sulfate 2 mg Q30M PRN IV 08/19/24 14:45 Atorvastatin Calcium 40 mg HS PO 08/20/24 22:00 08/22/24 21:36 40 MG Carvedilol 6.25 mg Q12HR PO 08/20/24 22:00 08/23/24 09:49 6.25 MG Patient Own Medication 1 HS PO 08/20/24 22:00 08/22/24 21:25 1 Ondansetron HCl 4 mg Q6HPRN PRN IV 08/20/24 17:30 08/23/24 09:50 4 MG Acetaminophen/ Hydrocodone Bitart 1 tab Q8HPRN PRN PO 08/21/24 11:30 08/22/24 21:41 1 TAB Bumetanide 1 mg BIDD PO 08/23/24 06:00 08/23/24 05:37 1 MG Sacubitril/ Valsartan 1 tab BID PO 08/23/24 22:00 Clopidogrel Bisulfate 75 mg DAILY PO 08/24/24 10:00 objective Gen: NAD, AAOx3 HEENT: NC,AT Lungs: Crackles lung bases Cardiac: RRR, + systolic murmur Abd: soft, no tenderness Ext: + edema Neuro: no focal deficits laboratory and microbiology Laboratory Tests 08/23/24 06:29 Test 08/23/24 06:29 Range/Units Serum Glucose 122 H 74-106 mg/dL Assessment/Plan ERNESTO secondary to cardiorenal syndrome CKD IIIb Acute on chronic systolic CHF (EF: 20%) Elevated troponin, serial no uptrend s/p TAVR s/p ICD mod/severe tricuspid regurgitation CAD s/p stent HTN COPD Peripheral artery disease Plan: Great UO: 3.8 L in the last 24 hours Continue Bumex 1 mg PO BID Entresto 24-26 mg BID has been started. Fluid restriction daily BMP Cardiology consult appreciated Strict I&Os Cleared from Nephrology perspective for discharge Patient is known to me in my office. He will need a follow up with me in 2 weeks after discharge Dietary Evaluation Review Comments: 1) CCHO 60gm + renal specific 70gm Diet 2) Refer to CDE on DC 3) Continue current plan of care Expected Outcomes/Goals: improved CMP & CBC values continue to have adequate PO intake fu 3-5 days Plan discussed with: Patient, Other FATUMA AVINA MD Aug 23, 2024 13:28
[2024-08-23] MEDS ORDERED: BUME0.5T4 PO (14:45)
--- NOTE | 2024-08-23 15:35 | DVHDSRES ---
Discharge Summary Date of Admission Resident Creating Document: AVILA BOYER RESIDENT Aug 19, 2024 at 14:39 Date of Discharge: Aug 23, 2024 Admitting Diagnosis acute chest pain r/o nstemi acute on chronic diastolic systolic heart failure acute on chronic elevation in trop likely ak from heart failure acute elevation in crea likely from heart failure fluid overload acute thrombocytopenia chronic cardiomegaly Wounds: right heel ulcer Labs/Diagnostic Data: Laboratory Results Test 08/23/24 06:29 08/22/24 05:06 08/20/24 10:58 08/20/24 04:10 White Blood Count 5.3 10^3/uL (4.4-10.8) Red Blood Count 3.40 10^6/uL (4.5-5.90) Hemoglobin 12.0 g/dL (13.5-17.5) Hematocrit 34.9 % (41.0-53.0) Mean Corpuscular Volume 102.7 fL (80.0-100.0) Mean Corpuscular Hemoglobin 35.3 pg (28.0-32.0) Mean Corpuscular Hemoglobin Concent 34.3 g/dL (32.0-36.0) Red Cell Distribution Width 14.6 % (11.8-14.3) Platelet Count 103 10^3/uL (140-450) Mean Platelet Volume 10.7 fL (6.9-10.8) Neutrophils (%) (Auto) 66.7 % (37.0-80.0) Lymphocytes (%) (Auto) 12.1 % (10.0-50.0) Monocytes (%) (Auto) 13.6 % (0.0-12.0) Eosinophils (%) (Auto) 6.7 % (0.0-7.0) Basophils (%) (Auto) 0.9 % (0.0-2.0) Neutrophils # (Auto) 3.6 10 ^3/uL (1.6-8.6) Lymphocytes # (Auto) 0.6 10 ^3/uL (0.4-5.4) Monocytes # (Auto) 0.7 10 ^3/uL (0-1.3) Eosinophils # (Auto) 0.4 10 ^3/uL (0-0.8) Basophils # (Auto) 0 10 ^3/uL (0-0.2) Nucleated Red Blood Cells 0.0 % Sodium Level 136 mmol/L (136-145) Potassium Level 3.5 mmol/L (3.5-5.1) Chloride Level 95 mmol/L (98-107) Carbon Dioxide Level 28 mmol/L (20-31) Anion Gap 13 (5-15) Blood Urea Nitrogen 82 mg/dL (9-23) Creatinine 2.61 mg/dL (0.700-1.30) Glomerular Filtration Rate Calc 26 mL/min (>90) BUN/Creatinine Ratio 31.4 (10.0-20.0) Serum Glucose 122 mg/dL (74-106) Calcium Level 9.1 mg/dL (8.7-10.4) Magnesium Level 2.7 mg/dL (1.6-2.6) Total Bilirubin 1.1 mg/dL (0.2-1.0) Aspartate Amino Transferase (AST) 19 U/L (13-40) Alanine Aminotransferase (ALT) 21 U/L (7-40) Alkaline Phosphatase 146 U/L (46-116) Total Protein 6.7 g/dL (5.7-8.2) Albumin 3.9 g/dL (3.2-4.8) Troponin I High Sensitivity 85 ng/L (</=54) Triglycerides Level 91 mg/dL (< 150) Cholesterol Level 152 mg/dL (< 200) LDL Cholesterol 66 mg/dL (< 100) HDL Cholesterol 64 mg/dL (40-59) Test 08/19/24 17:31 08/19/24 10:54 08/19/24 10:40 D-Dimer, Quantitative 0.56 mg/L FEU (0.0-0.49) B-Type Natriuretic Peptide 3063.83 pg/mL (0-100) Thyroid Stimulating Hormone (TSH) 5.49 uIU/mL (0.55-4.78) Urine Color Light-yellow (Yellow) Urine Clarity Clear (Clear) Urine pH 6.5 (5.0-9.0) Urine Specific [place] 1.017 (1.001-1.035) Urine Protein 1+ (Negative) Urine Ketones Negative (Negative) Urine Blood Negative /uL (Negative) Urine Nitrite 2+ (Negative) Urine Bilirubin Negative (Negative) Urine Urobilinogen 2 mg/dL (Negative) Urine Leukocyte Esterase Trace /uL (Negative) Urine RBC 2 /hpf (0 - 3) Urine Microscopic WBC 3 /HPF (0-3) Urine Squamous Epithelial Cells None seen /hpf (<5) Urine Bacteria None seen /hpf (None Seen) Urine Glucose 4+ mg/dL (Normal) Other Laboratory Tests 08/23/24 06:29 Brief Hx & Hospital Course: HPI Patient is a 64-year-old male with a past medical history as described below presented to the ED with a chief complaint of worsening shortness of breath since the last 1 week. Patient has been compliant with the medication but in the last few days he had worsening shortness of breath NYHA class 2 associated with orthopnea. He mentioned that his weight increased around 20 lb in the last weeks. Patient denied feeling any chest pain, palpitations or dizziness. Patient has a ulcer with the right heel which is healing. Past medical history: coronary artery disease s/p PCI with a 5 GI, heart failure with reduced ejection fraction, valvular heart disease s/p TAVR, CKD, insulin-dependent diabetes mellitus, degenerative disc, hypertension, hyperlipidemia Past surgical history: PCI with 5 GI, TAVR with bioprosthetic valve Social history: Patient lives with the family and denies smoking, alcohol, drug use Home medications: Carvedilol 6.25 mg b.i.d., Farxiga 10 mg, finrenone 10 mg, Bumex 0.5 mg b.i.d., Entresto 09/14/2025 1 tab b.i.d. Brief hospital course Patient was admitted to the hospital with worsening shortness of breath and was started on IV Bumex 2 mg b.i.d. and was placed on oxygen via nasal cannula. P atient over the course of hospital was in a net negative balance of more than 5 L with oxygen requirement and significant improvement in the bilateral lower extremities. Patient had elevated BUN and creatinine for which nephrology were consulted. IV Bumex was changed to Bumex p.o. and metolazone was stopped. Patient was restarted on Entresto 24-26 mg and was discharged in stable condition to home. Discharge plan Follow up with Dr. Barnett in the outpatient clinic in 1-2 weeks Follow up with the Nephrology in the outpatient clinic in 1-2 weeks Medications: Carvedilol 6.125 mg b.i.d., Bumex 1 mg p.o. daily, Entresto 24-26 mg 1 tab p.o. b.i.d., aspirin, Plavix, Farxiga. Consults/Reason for consult Cardiology consultation for CHF exacerbation Nephrology consultation for acute on chronic kidney disease Operations or Procedures Bilateral lower extremity arterial duplex showed no hemodynamically significant stenosis Bilateral lower extremity DVT showed no evidence of right and left femoropopliteal vein thrombosis Nuclear medicine VQ scan showed low probability for PE Condition at Discharge: Good Final Diagnosis/Problems List Acute on chronic hypoxic respiratory failure Acute exacerbation of heart failure with reduced ejection fraction Ischemic cardiomyopathy H/O coronary artery disease s/p PCI ERNESTO on CKD likely due to VMN Hypertensive heart disease with a heart failure Valvular heart disease s/p TAVR Peripheral artery disease Hypothyroidism Discharge Disposition: Home Discharge Instruct/Medications Diet: Cardiac 2g Na,low cholest, Renal Activity: No Restrictions, As Tolerated Follow Up/Referral: Follow up with Dr. Barnett in the outpatient clinic within 2 weeks Follow up with in the outpatient clinic within 2 weeks Medications: as per EMR Discharge Statement: "Patient was advised to return to the ER or call 911 if any headaches, dizziness, shortness of breath, chest pain, abdominal pain, bleeding, fevers, or worsening of medical condition. Patient was counseled about treatment plan, medications, possible side effects, patientverbalized understanding. All questions were answered to the best of my ability. This discharge took greater then 30 minutes in planning, reviewing documentation, counseling the patient, and discussing with other team members." ASSESSMENT ASSESSMENT Assessment Acute on chronic hypoxic respiratory failure Acute exacerbation of heart failure with reduced ejection fraction Ischemic cardiomyopathy H/O coronary artery disease s/p PCI ERNESTO on CKD likely due to VMN Hypertensive heart disease with a heart failure Valvular heart disease s/p TAVR Peripheral artery disease Hypothyroidism Date of Service: Aug 23, 2024 Billing Provider: AISHWARYA HUSSEIN MD Common Visit Codes: 38132-PAR/OBS DISCH DAY >30min AVILA BOYER Aug 23, 2024 15:35 AISHWARYA HUSSEIN MD Aug 24, 2024 12:53
[2024-08-23] MEDS ORDERED: SACUBITRIL-VALSARTAN 24mg/26mg TAB PO SCH ×2 (22:00)
[2024-08-24] MEDS ORDERED: CLOPIDOGREL BISULFATE 75 MG TAB PO SCH (10:00)
== END 2024-08-23 16:00 | disposition home or self-care (01) | DRG 280 ==
LOC: ER 09:50 → OVERFLOW 14:39 → TELE-WESTW 21:00
PROVIDERS: ADMIT Student in an Organized Health Care Education/Training Program; ATTEND Student in an Organized Health Care Education/Training Program
DX: I13.0 Hypertensive heart and chronic kidney disease with heart failure and stage 1 through stage 4 chronic kidney disease, or unspecified chronic kidney disease (principal); I50.43 Acute on chronic combined systolic (congestive) and diastolic (congestive) heart failure; I21.A1 Myocardial infarction type 2; J96.21 Acute and chronic respiratory failure with hypoxia; N17.0 Acute kidney failure with tubular necrosis; I24.89 Other forms of acute ischemic heart disease; D69.6 Thrombocytopenia, unspecified; N18.32 Chronic kidney disease, stage 3b; D64.9 Anemia, unspecified; E11.22 Type 2 diabetes mellitus with diabetic chronic kidney disease; E11.51 Type 2 diabetes mellitus with diabetic peripheral angiopathy without gangrene; E78.5 Hyperlipidemia, unspecified; I08.1 Rheumatic disorders of both mitral and tricuspid valves; I25.10 Atherosclerotic heart disease of native coronary artery without angina pectoris; I27.22 Pulmonary hypertension due to left heart disease; I37.1 Nonrheumatic pulmonary valve insufficiency; J44.9 Chronic obstructive pulmonary disease, unspecified; I25.5 Ischemic cardiomyopathy; E03.9 Hypothyroidism, unspecified; I13.10 Hypertensive heart and chronic kidney disease without heart failure, with stage 1 through stage 4 chronic kidney disease, or unspecified chronic kidney disease; N18.9 Chronic kidney disease, unspecified; Z79.82 Long term (current) use of aspirin; Z79.899 Other long term (current) drug therapy; Z82.3 Family history of stroke; Z83.3 Family history of diabetes mellitus; Z95.2 Presence of prosthetic heart valve; Z95.5 Presence of coronary angioplasty implant and graft; Z95.810 Presence of automatic (implantable) cardiac defibrillator
CPT/HCPCS: 36415; 71045; 78582; 80048; 80053; 80061; 81001; 83735; 83880; 84443; 84484; 85025; 85379; 93306; 93925; 93970; 96372; 96374; 99291; 99292; G0378; J2405